=== PATIENT | female | born 1935 | race Two or more races ===

== ENCOUNTER 2024-01-01 11:55 | Inpatient (IN) | payer OTHER ==
[~2024-01-01] VITALS: Ht 149.9 cm; Wt 63.0 kg
[2024-01-01] VITALS (12 sets, daily range): BP systolic 91–147; BP diastolic 30–57; PULSE 26–94; RESP 10–19; TEMP 98.2; O2SAT 97–100
--- NOTE | 2024-01-01 12:17 | ED.PDOC ---
HPI Comments 88 y.o female with PMH of HTN and DM, presents to the ED via EMS for an evaluation of a near syncopal. EMS reports on scene, patient was pale on appearance, 12 lead taken showing a heart block. EMS also reported patient going tachycardiac and then no rhythm for a couple seconds.. Patient has a valve surgery one week ago at [facility] and had a surgical appointment for pacemaker placement tomorrow 01/02/24. Patient denies any chest pain, SOB, nausea, vomiting, leg swelling. Chief Complaint: Syncope Time Seen by MD: 12:01 Reviewed Notes: Nurses Notes, Die Storage Clerk Notes, Medications, Allergies Allergies: Coded Allergies: NO KNOWN ALLERGIES (Unverified , 01/01/24) Information Source: Patient, Emergency Med Personnel Mode of Arrival: EMS Severity: Moderate Timing: Hours Duration: Since onset Onset: At Rest Cardiac Risk Factors: HTN, Diabetes PE Risk Factors: None History of: None Modifying Factors: Nothing Associated Signs and Symptoms: Syncope Past Medical History PAST MEDICAL HISTORY: DM, HTN CROP SUPERVISOR History: No Pertinent CROP SUPERVISOR History Family History Family History: Reviewed,noncontributory to illness Social History Smoker: Non-Smoker Alcohol: Denies ETOH Use Drugs: Denies Drug Use Lives In: Home Constitutional: denies: chills, diaphoresis, fatigue, fever, malaise, sweats, weakness, others EENTM: denies: blurred vision, double vision, ear bleeding, ear discharge, ear drainage, ear pain, ear ringing, eye pain, eye redness, hearing loss, mouth kerry n, mouth swelling, nasal discharge, nose bleeding, nose congestion, nose pain, photophobia, tearing, throat pain, throat swelling, voice changes, others Respiratory: denies: cough, hemoptysis, orthopnea, SOB at rest, shortness of breath, SOB with excertion, stridor, wheezing, others Cardiovascular: reports: syncope; denies: chest pain, dizzy spells, diaphoresis, Dyspnea on exertion, edema, irregular heart beat, left arm pain, lightheadedness, palpitations, PND, others Gastrointestinal: denies: abdomen distended, abdominal pain, blood streaked bowels, constipated, diarrhea, dysphagia, difficulty swallowing, hematemesis, melena, nausea, poor appetite, poor fluid intake, rectal bleeding, rectal pain, vomiting, others Genitourinary: denies: abnormal vagina bleeding, burning, dyspareunia, dysuria, flank pain, frequency, hematuria, incontinence, pain, , vagina discharge, urgency, others Neurological: denies: dizziness, fainting, headache, left sided numbness, left sided weakness, numbness, paresthesia, pre-existing deficit, right sided numbness, right sided weakness, seizure, speech problems, tingling, tremors, weakness, others Musculoskeletal: denies: back pain, gout, joint pain, joint swelling, muscle pain, muscle stiffness, neck pain, others Integumetry: denies: bruises, change in color, change in hair/nails, dryness, laceration, lesions, lumps, rash, wounds, others Allergic/Immunocompromised: denies: Difficulty Healing, Frequent Infections, Hives, Itching, others Hematologic/Lymphatic: denies: anemia, blood clots, easy bleeding, easy bruisin g, swollen glands, others Endocrine: denies: excessive hunger, excessive sweating, excessive thirst, excessive urination, flushing, intolerance to cold, intolerance to heat, unexplained weight gain, unexplained weight loss, others Psychiatric: denies: anxiety, bipolar disorder, depression, hopeless, panic disorder, schizophrenia, sleepless, suicidal, others All Other Systems: Reviewed and Negative Physical Exam General Appearance: Severe Distress HEENT: Normal ENT Inspection, Pharynx Normal, TMs Normal Neck: Full Range of Motion, Non-Tender, Normal, Normal Inspection Respiratory: Chest Non-Tender, Lungs Clear, No Accessory Muscle Use, No Respiratory Distress, Normal Breath Sounds Cardiovascular: Bradycardia Breast Exam: Deferred Gastrointestinal: No Organomegaly, Non Tender, No Pulsatile Mass, Normal Bowel Sounds, Soft Genitalia: Deferred Pelvic: Deferred Rectal: Deferred Extremities: No calf tenderness, Normal capillary refill, Normal inspection, Normal range of motion, Non-tender, No pedal edema Musculoskeletal : Apperance: Normal Neurologic: Alert, cotton ball bagger II-XII nml as Tested, No Motor Deficits, Normal Affect, Normal Mood, No Sensory Deficits Cerebellar Function: NOT DONE Reflexes: NOT DONE Skin: Dry, Normal Color, Warm Peripheral Pulses: 3+ Radial (R), 3+ Radial (L) Lymphatic: No Adenopathy Was a procedure done? Was a procedure done?: No CP Differential Dx Differential Diagnosis: A-fib, A-Flutter, Angina, Anxiety / Panic Attack, Atrial Dysrhythmia, AV Block 3rd Degree, Electrolyte Disorder X-Ray, Labs, Meds, VS Vital Signs Date Time Temp Pulse Resp B/P (MAP) Pulse Ox O2 Delivery O2 Flow Rate FiO2 01/01/24 12:43 133 01/01/24 12:25 116/41 01/01/24 12:05 94 01/01/24 11:59 81 01/01/24 11:55 98.7 20 18 113/64 (80) 98 Lab Test 01/01/24 13:10 Range/Units White Blood Count 7.2 4.4-10.8 10^3/uL Red Blood Count 4.11 4.0-5.20 10^6/uL Hemoglobin 11.7 L 12.2-16.2 g/dL Hematocrit 34.9 L 36.0-46.0 % Mean Corpuscular Volume 85.0 80.0-100.0 fL Mean Corpuscular Hemoglobin 28.3 28.0-32.0 pg Mean Corpuscular Hemoglobin Concent 33.4 32.0-36.0 g/dL Red Cell Distribution Width 15.0 H 11.8-14.3 % Platelet Count 182 140-450 10^3/uL Mean Platelet Volume 9.3 6.9-10.8 fL Neutrophils (%) (Auto) 69.8 37.0-80.0 % Lymphocytes (%) (Auto) 22.2 10.0-50.0 % Monocytes (%) (Auto) 6.0 0.0-12.0 % Eosinophils (%) (Auto) 0.6 0.0-7.0 % Basophils (%) (Auto) 1.4 0.0-2.0 % Neutrophils # (Auto) 5.0 1.6-8.6 10 ^3/uL Lymphocytes # (Auto) 1.6 0.4-5.4 10 ^3/uL Monocytes # (Auto) 0.4 0-1.3 10 ^3/uL Eosinophils # (Auto) 0 0-0.8 10 ^3/uL Basophils # (Auto) 0.1 0-0.2 10 ^3/uL Nucleated Red Blood Cells 0.1 % Prothrombin Time 11.3 9.3-11.8 sec Prothrombin Time INR 1.07 0.9-1.15 Activated Partial Thromboplast Time 26.3 24.5-34.5 SEC Sodium Level 135 L 136-145 mmol/L Potassium Level 3.9 3.5-5.1 mmol/L Chloride Level 102 98-107 mmol/L Carbon Dioxide Level 21 20-31 mmol/L Anion Gap 12 5-15 Blood Urea Nitrogen 22 9-23 mg/dL Creatinine 0.93 0.550-1.02 mg/dL Glomerular Filtration Rate Calc 59 >90 mL/min BUN/Creatinine Ratio 23.7 H 10.0-20.0 Serum Glucose 208 H 74-106 mg/dL Hemoglobin A1c Pending Calcium Level 9.4 8.7-10.4 mg/dL Magnesium Level 2.1 1.6-2.6 mg/dL Troponin I High Sensitivity 105 *H </=34 ng/L B-Type Natriuretic Peptide 406.31 0-100 pg/mL Triglycerides Level 125 < 150 mg/dL Cholesterol Level 133 < 200 mg/dL LDL Cholesterol 64 < 100 mg/dL HDL Cholesterol 42 40-59 mg/dL Thyroid Stimulating Hormone (TSH) 2.67 0.55-4.78 uIU/mL Current Medications Medications (Trade) Dose Ordered Sig/Marcelo Route Start Time Stop Time Status Last Admin Sodium Chloride 1,000 ml @ 150 mls/hr Q6H40M ONCE IV 01/01/24 12:30 01/01/24 19:09 01/01/24 12:25 Dopamine HCl/ Dextrose 250 ml @ 11.925 mls/ hr [id number] IV 01/01/24 12:30 01/01/24 14:21 DC 01/01/24 12:25 Patient alert. Complaining of dizziness. EKG does show complete block. Mentating. Placed a Cordis catheter in internal jugular vein. Pacemaker. Cardiology consultation. BNP elevated. Recently had TAVAR. Blood sugar elevated. She is being paced. Started dopamine. Establish intravenous access. Was given fluids. Reviewed her history. Explained to the patient. Continue cardiac monitoring. Blood sugar elevated pain Cardiac marker elevated. Filer approved inpatient admission [id number]. Time of 1ST Reevaluation: 12:13 Reevaluation 1ST: Unchanged Patient Education/Counseling: Diagnosis, Treatment, Prognosis Family Education/Counseling: No Family Present Departure 1 Departure Time of Disposition: 14:30 Impression: Primary Impression: Complete atrioventricular block Additional Impressions: Hyperglycemia Demand ischemia Disposition: ADMITTED INPATIENT Admit to: Med Surg Condition: Guarded Critical Care Note Critical Care Time?: Yes (90 min-critical care time only) Stability Stability form required: No I personally scribed for TIANNA POP MD ([email or web address]) on 01/01/24 at 12:17. Electronically submitted by Emelia Theodore ([facility]). TIANNA POP MD Jan 01, 2024 12:17
[2024-01-01] MEDS: DOPamine 1600MCG/ML D5W 250 ML IV SCH (12:25)
[2024-01-01] MEDS: SODIUM CHLORIDE 0.9% 1,000 ML IV ONE (12:25)
[2024-01-01] MEDS: ISOPROTERENOL HCL INJECTION 1 MG in D5W 5% 250 ML IV SCH (12:30)
--- NOTE | 2024-01-01 12:56 | DVHINCON2 ---
Date Seen: Jan 01, 2024 Referring Physician MD Carlos Reason for Consultation Complete heart block History of Present Illness This is an 88-year-old female who presented to the emergency room via EMS with a chief complaint of near syncopal event. The patient with complains of dizziness and near syncopal event was found to be lethargic and pale upon EMS arrival. She underwent a 12 lead electrocardiogram revealing a complete heart block with sinus arrest pauses and intermittent tachycardia. She was placed on a high-dose dopamine drip for hemodynamic support. Cardiology consulted STAT for further evaluation. Upon assessment, the patient was found pale, nauseous and vomiting with a dopamine drip infusing. She was initially found with a complete heart block and sinus arrest pauses then transitioned into a junctional tachycardia rhythm in the 180s bpm with an associated systolic blood pressure in the 200s mmHg. Dopamine drip was discontinued with the patient undergoing emergent temporary transvenous pacemaker implantation by Dr. Carmona at bedside (settings 80 bpm and output at 5.0 mA). She reports undergoing a transcatheter aortic valve replacement at [facility] on 12/25/2023 as well as an outpatient permanent pacemaker implantation scheduled for 01/02/2024 at the aforementioned facility. Other medical history includes coronary artery disease status post PTCA including one ELIOT on 10/03/2023, hypertension, and dyslipidemia. Past Medical History Past medical history reviewed. No other significant than mentioned above. Past Surgical History PTCA including one ELIOT on 10/03/2023 at [facility] in [place] TAVR procedure on 12/25/2023 at [facility] in [place] Hysterectomy Right elbow x3 Family History Family history reviewed. Social History Denies the use of illicit drugs, alcohol, or tobacco use. Allergies: Coded Allergies: NO KNOWN ALLERGIES (Unverified , 01/01/24) Home Meds Home medications reviewed. Current Medications Current Medications Medications (Trade) Dose Ordered Sig/Marcelo Route PRN Reason Start Time Stop Time Status Last Admin Dopamine HCl/ Dextrose 250 ml @ 11.925 mls/ hr [id number] IV 01/01/24 12:30 Isoproterenol HCl 1 mg/Dextrose 255 ml @ 30.6 mls/hr Q8H20M IV 01/01/24 12:30 01/01/24 15:29 Review of Systems Constitutional: No symptom reported Ears, Nose, & Throat: No symptom reported Eyes: No symptom reported Neurological: Dizziness, near syncope Pulmonary/Respiratory: No symptom reported Cardiovascular: No symptom reported Gastrointestinal: No symptom reported Genitourinary: No symptom reported Musculoskeletal: No symptom reported Skin: No symptom reported Psychiatric: No symptom reported Endocrine: No symptom reported Hemotologic/Lymphatic: No symptom reported Vital Signs Vital Signs Date Time Temp Pulse Resp B/P (MAP) Pulse Ox O2 Delivery O2 Flow Rate FiO2 01/01/24 12:43 133 01/01/24 11:55 98.7 18 113/64 (80) 98 Physical Exam General Appearance: Lethargic. Pale. Nauseous Head Exam: Normal inspection Neck Exam: Normal inspection. Non-tender. Normal alignment Pulmonary/Respiratory: Chest non-tender. Clear bilateral breath sounds Cardiovascular/Chest: Sinus rhythm with intermittent complete heart block and sinus arrest pauses. No murmurs. No JVD. Peripheral Pulses: 1+ Radial (R). 1+ Radial (L). 1+ Pedal (R). 1+ Pedal (L) Abdominal Exam: Normal bowel sounds. Soft. Vomiting at the setting of high- dose dopamine drip Ankle Exam: Negative ankle edema Lower extremities: Negative lower extremity edema Neuro/Mental Status: A&O x4. Coherent Thoughts/Psych: Normal thought pattern. Appropriate mood and affect. Good judgement and insight Appearance: In no acute distress Skin Exam: Normal inspection. Pale color. Warm. 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 Carmona) The patient with a complete heart block and frequent sinus arrest pauses under went an emergent temporary transvenous pacemaker implantation at bedside with settings including a HR of 80 bpm and Output at 5.0 mA. She is now hemodynamically stable. She is scheduled for a permanent pacemaker implantation with Dr. Carmona on 01/02/2024. States taking DAPT today. We will reestablish DAPT and beta-isaiah post-procedure. Discontinue dopamine drip and isoprot erenol given hemodynamic stability post temporary pacemaker implantation. We recommend to admit to [facility]/ICU overnight. Monitor ECG changes closely and notify. Thank you for allowing us to participate in this patient's care. Please call if you have any questions or concerns. Critical care time: 60 min. This medical document was created using an electronic medical record system with voice recognition software and computerized dictation system. Although this document has been carefully review ed, there might still be some phonetic and typographical errors. Occasional wrong-word or ``sound-alike substitutions may have occurred due to the inherent limitations of voice recognition software. These areas are purely typographical due to imperfections of the software programs and do not reflect any compromise in the patient's medical care. Please read the chart carefully and recognize, using context, where these substitutions have occurred. Plan discussed with: Patient, Other Date of Service: Jan 01, 2024 Billing Provider: KAILEE CARMONA MD Cardiology Common Codes: 80519-HGCDGTJY CARE 30-74 MIN ALICIA MATOS [facility] Jan 01, 2024 12:56
--- NOTE | 2024-01-01 13:07 | DVHNC2 ---
Other Procedure Procedure Temporary venous pacer Indication Complete sinus arrest status post TAVR Dec 26 Success successful placement of 5 Fr Bipolar Pacer wire through cordis central line Backup HR 80 Output 4 mA Informed consent obtained: Yes Risks, benefits, and alternati: Yes Notes After informed consent was obtained risks benefits complications explained to the patient colitis was placed by the ER physician followed which temporary venous pacemaker wire was flow through the Cordis line without difficulty with good capture sensitivity chest x-ray confirmed the position without complication Date of Service: Jan 01, 2024 Billing Provider: KAILEE CARMONA MD Common Visit Codes: 99745-YRPWBFYH CARE 30-74 MIN Secondary Visit Codes: 96534-FAJQXEIA CARE PLAN ADDL 30MIN Procedure Codes: 13034-FWHO-FGSG KAILEE BREAUX MD Jan 01, 2024 13:07
--- NOTE | 2024-01-01 13:25 | DVH ---
CHEST RADIOGRAPH Indication:pacemaker placement Technique: Single frontal view of the chest was obtained Comparison: None FINDINGS: Lines and Tubes: There is a battery pack overlying the right chest wall. Lungs: No focal consolidation. Pleura: No effusion. No pneumothorax. Cardiomediastinal contours: Unremarkable Bones: No acute osseous abnormality. IMPRESSION: No acute cardiopulmonary disease.
[2024-01-01 13:26] LABS: Basophils # (auto) 0.1 10 ^3/uL (0-0.2); Basophils % (auto) 1.4 % (0.0-2.0); Eosinophils # (auto) 0 10 ^3/uL (0-0.8); Eosinophils % (auto) 0.6 % (0.0-7.0); Hematocrit 34.9 % (36.0-46.0); Hemoglobin 11.7 g/dL (12.2-16.2); Lymphocytes # (auto) 1.6 10 ^3/uL (0.4-5.4); Lymphocytes % (auto) 22.2 % (10.0-50.0); Mean Corpuscular Hemoglobin 28.3 pg (28.0-32.0); Mean Corpuscular Hgb Conc. 33.4 g/dL (32.0-36.0); Monocytes # (auto) 0.4 10 ^3/uL (0-1.3); Neutrophils % (auto) 69.8 % (37.0-80.0); Nucleated Red Blood Cells % 0.1 %; Platelet Count (auto) 182 10^3/uL (140-450); Red Blood Cells 4.11 10^6/uL (4.0-5.20); White Blood Cell 7.2 10^3/uL (4.4-10.8)
[2024-01-01] MEDS: DOPamine 1600MCG/ML D5W 250 ML IV ONE (13:32)
[2024-01-01 13:34] LABS: Chloride 102 mmol/L (98-107); Potassium 3.9 mmol/L (3.5-5.1); Sodium 135 mmol/L (136-145)
[2024-01-01 13:35] LABS: Anion Gap 12 (5-15); Calcium 9.4 mg/dL (8.7-10.4); Carbon Dioxide 21 mmol/L (20-31)
[2024-01-01 13:40] LABS: BUN/Creatinine Ratio 23.7 (10.0-20.0); Blood Urea Nitrogen 22 mg/dL (9-23); Glucose 208 mg/dL (74-106)
[2024-01-01 13:43] LABS: Magnesium 2.1 mg/dL (1.6-2.6)
[2024-01-01 14:00] LABS: INR 1.07 (0.9-1.15); Partial Thromboplastin Time 26.3 SEC (24.5-34.5); Prothrombin Time 11.3 sec (9.3-11.8)
--- NOTE | 2024-01-01 14:49 | ECG ---
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
[2024-01-01] MEDS ORDERED: ACETAMINOPHEN 500 MG TAB PO PRN (15:00)
[2024-01-01] MEDS ORDERED: NITROGLYCERIN 0.4 MG SL TAB SL PRN ×3 (15:00→15:15)
[2024-01-01] MEDS ORDERED: MORPHINE SULFATE INJ 2 MG/ml SYRG IV PRN ×2 (15:00→15:15)
[2024-01-01] MEDS ORDERED: ACETAMINOPHEN 325 MG TAB PO PRN (15:15)
[2024-01-01] MEDS ORDERED: ONDANSETRON HCL 4 MG/2 ML VIAL IV PRN (15:15)
[2024-01-01 15:17] LABS: Urine Bacteria FEW /hpf (None Seen); Urine Blood TRACE /uL (Negative); Urine Clarity Turbid (Clear); Urine Color Light-Yellow (Yellow); Urine Protein, UAD Negative (Negative); Urine Specific Gravity 1.019 (1.001-1.035); Urine Urobilinogen Normal (Negative); Urine WBC 24 /hpf (0 - 5)
--- NOTE | 2024-01-01 15:20 | DVHHP2 ---
History of Present Illness Reason for Visit: Weakness History of Present Illness 88 yo female weakness chest pain extensive cardiac history including recent TAVR and recent pacer came with syncopal episode and weakness following pacer instability with signs of complete heart block on intial evaluation evaluated by cardio planned for labor/excavator temp pacer placed in ed planned for icu admission and management with cardio managing and following acute cardiac needs Cardiovascular: CAD, HTN Endocrine: Diabetes Review of Systems Constitutional: Yes: Weakness; No: Fever, Chills, Sweats, Malaise, Other Eyes: No: Pain, Vision change, Conjunctivae inflammation, Eyelid inflammation, Other, Redness ENT: No: Ear pain, Ear discharge, Nose pain, Nose discharge, Nose congestion, Mouth pain, Mouth swelling, Throat pain, Throat swelling, Other Respiratory: Shortness of breath; No: Cough, Dry, SOB with excertion, Wheezing, Hemoptysis, Pleuritic Pain, Sputum, Wheezing, Other Cardiovascular: Chest Pain, Palpitations; No: Orthopnea, Paroxysmal Noc. Dyspnea, Edema, Lt Headedness, Other Gastrointestinal: No: Nausea, Vomiting, Abdominal Pain, Diarrhea, Constipation, Melena, Hematochezia, Other Genitourinary: No Dysuria, No Frequency, No Incontinence, No Hematuria, No Retention, No Other Musculoskeletal: No: other, neck pain, shoulder pain, arm pain, back pain, hand pain, leg pain, foot pain Skin: No: Rash, Lesions, Jaundice, Bruising, Other Neurological: Weakness; No: Numbness, Incoordination, Change in speech, Confusion, Seizures, Other Allergies: Coded Allergies: NO KNOWN ALLERGIES (Unverified , 01/01/24) Medications Current Medications Medications Dose Ordered Sig/Marcelo Route Start Time Stop Time Status Last Admin Dose Admin Acetaminophen 500 mg Q8HP PRN PO 01/01/24 15:00 Nitroglycerin 0.4 mg Q5MINP PRN SL 01/01/24 15:00 Morphine Sulfate 2 mg Q30M PRN IV 01/01/24 15:00 Atorvastatin Calcium 40 mg HS PO 01/01/24 22:00 Exam Vital Signs Vital Signs Date Time Temp Pulse Resp B/P (MAP) Pulse Ox O2 Delivery O2 Flow Rate FiO2 01/01/24 12:43 133 01/01/24 12:25 116/41 01/01/24 11:55 98.7 18 98 General Appearance: Alert, Oriented X3 HEENT: Atraumatic, PERRLA Respiratory: Clear to auscultation, Normal air movement Cardiovascular: Other (irregular rate now paced ) Abdominal: Normal bowel sounds, Soft Extremities: No clubbing, No cyanosis Skin: No rashes, No breakdown Neuro: Normal gait, Normal speech Psych/Mental Status: Mental status NL, Mood NL Labs/Xrays Labs Test 01/01/24 14:35 01/01/24 13:10 Range/Units White Blood Count 7.2 4.4-10.8 10^3/uL Red Blood Count 4.11 4.0-5.20 10^6/uL Hemoglobin 11.7 L 12.2-16.2 g/dL Hematocrit 34.9 L 36.0-46.0 % Mean Corpuscular Volume 85.0 80.0-100.0 fL Mean Corpuscular Hemoglobin 28.3 28.0-32.0 pg Mean Corpuscular Hemoglobin Concent 33.4 32.0-36.0 g/dL Red Cell Distribution Width 15.0 H 11.8-14.3 % Platelet Count 182 140-450 10^3/uL Mean Platelet Volume 9.3 6.9-10.8 fL Neutrophils (%) (Auto) 69.8 37.0-80.0 % Lymphocytes (%) (Auto) 22.2 10.0-50.0 % Monocytes (%) (Auto) 6.0 0.0-12.0 % Eosinophils (%) (Auto) 0.6 0.0-7.0 % Basophils (%) (Auto) 1.4 0.0-2.0 % Neutrophils # (Auto) 5.0 1.6-8.6 10 ^3/uL Lymphocytes # (Auto) 1.6 0.4-5.4 10 ^3/uL Monocytes # (Auto) 0.4 0-1.3 10 ^3/uL Eosinophils # (Auto) 0 0-0.8 10 ^3/uL Basophils # (Auto) 0.1 0-0.2 10 ^3/uL Nucleated Red Blood Cells 0.1 % Prothrombin Time 11.3 9.3-11.8 sec Prothrombin Time INR 1.07 0.9-1.15 Activated Partial Thromboplast Time 26.3 24.5-34.5 SEC Sodium Level 135 L 136-145 mmol/L Potassium Level 3.9 3.5-5.1 mmol/L Chloride Level 102 98-107 mmol/L Carbon Dioxide Level 21 20-31 mmol/L Anion Gap 12 5-15 Blood Urea Nitrogen 22 9-23 mg/dL Creatinine 0.93 0.550-1.02 mg/dL Glomerular Filtration Rate Calc 59 >90 mL/min BUN/Creatinine Ratio 23.7 H 10.0-20.0 Serum Glucose 208 H 74-106 mg/dL Hemoglobin A1c 7.9 H <5.7 % A1C Calcium Level 9.4 8.7-10.4 mg/dL Magnesium Level 2.1 1.6-2.6 mg/dL Troponin I High Sensitivity 105 *H </=34 ng/L B-Type Natriuretic Peptide 406.31 0-100 pg/mL Triglycerides Level 125 < 150 mg/dL Cholesterol Level 133 < 200 mg/dL LDL Cholesterol 64 < 100 mg/dL HDL Cholesterol 42 40-59 mg/dL Thyroid Stimulating Hormone (TSH) 2.67 0.55-4.78 uIU/mL Assessment/Plan Assessment/Plan Admit to ICU Complete heart block complicated cardiac history cardio consulted in ed ICU placement temporary pacer cath evaluation elevated trops chest pain protocol s/p TAVR s/p Pacer with device instability history CHF elevated BNP monitor for fluid overload following with cardio management plan DM hyperglycemia insulin sliding scale Plan discussed with: Patient My Orders Orders - TEZ KENYON MD Procedure Category Date Status Time Admit ADMIT 01/01/24 Transmitted 15:06 Code Status CODE 01/01/24 Transmitted 15:06 Monogram Operator GABRIEL 01/01/24 In Process 15:06 Cardiac DIET 01/01/24 Transmitted Diet-2gna,Lofat,Lochol Dinner Aspirin Tablet PHA 01/02/24 Logged 10:00 Clopidogrel Bisulfate PHA 01/02/24 Logged (Plavix) 10:00 Acetaminophen Tablet PHA 01/01/24 Logged (Tylenol Tablet) 15:15 Zolpidem Tartrate PHA 01/01/24 Logged (Ambien) 15:15 Docusate Sodium PHA 01/02/24 Logged Capsule (Colace 10:00 Basic Metabolic Panel LAB 01/02/24 Verified 04:00 Nitroglycerin PHA 01/01/24 Logged Sublingual (Ntrostat 15:15 Ondansetron Hcl PHA 01/01/24 Logged (Zofran) 15:15 Electrocardigram EKG 01/01/24 Logged 15:06 Alum & Mag PHA 01/01/24 Logged Hydrox-Simethicone 15:15 Troponin-I Hs LAB 01/01/24 Logged 15:06 Lisinopril Tablet PHA 01/02/24 Logged (Zestril Tablet) 10:00 Cardiac GABRIEL 01/01/24 In Process Rehabilitation - Outpa Nitroglycerin PHA 01/01/24 Logged Sublingual (Ntrostat 15:15 Morphine Sulfate PHA 01/01/24 Logged Injection 15:15 Stat Ekg For Chest GABRIEL 01/01/24 In Process Pain 15:06 Notify Md Of Changes [facility] 01/01/24 In Process From Base 15:06 Schedule Clerk For [facility] 01/01/24 In Process 24 Hours 15:06 Emergency Dysrhythmia [facility] 01/01/24 In Process Protocol 15:06 Rhythm Strips Once [facility] 01/01/24 In Process Every Shift 15:06 Oxygen By Nasal RT 01/01/24 Transmitted Cannula 15:06 Electrocardigram EKG 01/01/24 Logged 16:06 Electrocardigram EKG 01/01/24 Logged 18:06 Troponin-I Hs LAB 01/01/24 Logged 16:06 Problem List: (1) Complete atrioventricular block (2) Demand ischemia (3) Hyperglycemia Date of Service: Jan 01, 2024 Billing Provider: TEZ KENYON MD Common Visit Codes: 81192-[id number] CARE 30-74 MIN (40 mins chart evaluation consultation bedside care ) TEZ KENYON MD Jan 01, 2024 15:20
[2024-01-01] MEDS: MAALOX PLUS or MAALOX 30 ML PO ONE (15:25)
[2024-01-01] MEDS: ASPirin 81 mg TAB PO SCH (15:25)
[2024-01-01] MEDS: ACETAMINOPHEN 500 MG TAB PO ONE (15:26)
--- NOTE | 2024-01-01 18:01 | DVHSR ---
APPROVED REPORT EXAM: LIMITED Two-dimensional and M-mode echocardiogram with Doppler and color Doppler. Blood Pressure: 113/64 mmHg INDICATION Complete Heart Block Surgery/Intervention Valve Replacement: Type: TAVR RISK FACTORS Height: 4' 11", Weight: 140 DIMENSIONS LVDd4.4 (3.8-5.7cm)LA (2D)3.7 (1.9-4.0cm)Aortic Root (2.0-3.7cm) LVDs3.8 (2.5-4.0cm)LA (MM) (1.9-4.0cm)Aortic Cusp Exc (1.5-2.0cm) EF (%) 35.0 (55-70%)Rt. Atrium3.2 (1.9-4.0cm)Asc. Aorta cm IVSd0.9 (0.7-1.1cm)RV (D) (1.8-2.4cm) PWd0.9 (0.7-1.1cm) Mitral Valve MitralMitral Stenosis E wave1.20m/sMV Mean GR.mmHg E/A ratio0.02D MVAcm2 Aortic Valve Aortic ValveAortic Stenosis V10.70m/Yessica Mean GR.4mmHg V21.30m/Yessica Peak GR.7mmHg Tricuspid Valve TR Velocity2.46m/s [id number] Other Information Quality : Technically LimitedRhythm : Atrial Fibrillation Technically limited study due to body habitus. Conclusion Moderately to severely reduced left ventricular systolic function estimated ejection fraction of 35%. In a global fashion. Patient is in atrial fibrillation. Mildly reduced right ventricular systolic function. Right ventricular systolic pressure estimated at 24 mm of mercury. Normal biatrial size and dimension. Normal aortic valve structure and function. Normal mitral valve structure and function. Normal tricuspid valve structure and function. The pulmonary valve is grossly normal. No pericardial effusion.
--- NOTE | 2024-01-01 19:05 | ECG ---
[facility] Test Date: 2024-01-01 Test Time: 11:59:13 Pat Name: LEEANN KU Department: ER Room: [address] [place] [address] Gender: F Returns Supervisor: ODETTE : [id number] Requested By: TEZ KENYON Order Number: [id number] Reading MD: Measurements Intervals Dent Rate: 81 P: 0 WI: 150 QRS: -54 QRSD: 136 T: 112 QT: 424 QTc: 493 Interpretive Statements Sinus rhythm Atrial premature complexes in couplets Sinus pause Left bundle branch block Please click the below link to view image of tracing.
[2024-01-01] MEDS: ATORVASTATIN 20 MG TAB PO SCH (22:00)
[2024-01-01] MEDS: ZOLPIDEM TARTRATE 5 MG TAB PO PRN (22:04)
[2024-01-02] VITALS (31 sets, daily range): BP systolic 91–165; BP diastolic 46–87; PULSE 75–119; RESP 9–20; TEMP 97.1–98.2; O2SAT 90–100
[2024-01-02] MEDS ORDERED: METO25TA5 PO (03:03)
[2024-01-02] MEDS ORDERED: CLOP75TA70 PO (03:03)
[2024-01-02] MEDS ORDERED: ACET-1304 PO (03:03)
[2024-01-02] MEDS ORDERED: EMPA1TAB3 PO (03:03)
[2024-01-02] MEDS ORDERED: ATOR40TA52 PO (03:03)
[2024-01-02] MEDS ORDERED: NYST150P2 XX (03:03)
[2024-01-02] MEDS ORDERED: ASPI-543 PO (03:03)
[2024-01-02] MEDS ORDERED: OMEP20TA PO (03:03)
[2024-01-02 05:14] LABS: Basophils # (auto) 0.1 10 ^3/uL (0-0.2); Basophils % (auto) 1.2 % (0.0-2.0); Eosinophils # (auto) 0.5 10 ^3/uL (0-0.8); Eosinophils % (auto) 6.5 % (0.0-7.0); Hematocrit 33.5 % (36.0-46.0); Hemoglobin 11.1 g/dL (12.2-16.2); Lymphocytes # (auto) 2.2 10 ^3/uL (0.4-5.4); Lymphocytes % (auto) 27.4 % (10.0-50.0); Mean Corpuscular Hemoglobin 28.3 pg (28.0-32.0); Mean Corpuscular Hgb Conc. 33.3 g/dL (32.0-36.0); Monocytes # (auto) 0.7 10 ^3/uL (0-1.3); Monocytes % (auto) 8.4 % (0.0-12.0); Neutrophils # (auto) 4.6 10 ^3/uL (1.6-8.6); Neutrophils % (auto) 56.5 % (37.0-80.0); Platelet Count (auto) 163 10^3/uL (140-450); Red Blood Cells 3.94 10^6/uL (4.0-5.20); Red Cell Distribution Width 15.3 % (11.8-14.3); White Blood Cell 8.1 10^3/uL (4.4-10.8)
[2024-01-02] MEDS ORDERED: DEXTROSE (50%) 50ML SYRG IV PRN (05:30)
[2024-01-02 05:31] LABS: Alanine Aminotransferase 10 U/L (7-40); Albumin 3.5 g/dL (3.2-4.8); Alkaline Phosphatase 74 U/L (46-116); Anion Gap 12 (5-15); Aspartate Aminotransferase 14 U/L (13-40); Blood Urea Nitrogen 14 mg/dL (9-23); Calcium 9.1 mg/dL (8.7-10.4); Carbon Dioxide 20 mmol/L (20-31); Chloride 108 mmol/L (98-107); Glucose 110 mg/dL (74-106); Potassium 3.6 mmol/L (3.5-5.1); Sodium 140 mmol/L (136-145); Total Protein 6.8 g/dL (5.7-8.2)
[2024-01-02] MEDS: InsuLIN REG 1unit/0.01ml Soln (100units/ml) SC SCH (06:18)
[2024-01-02] MEDS: ACCU-CHEK COMFORT CURVE STRIP VI SCH (06:18)
[2024-01-02] MEDS: VANCOMYCIN 1GM/200ML PREMIX 200 ML IV ONE ×2 (09:15→10:09)
[2024-01-02] MEDS ORDERED: LISINOPRIL 5 MG TAB PO SCH (10:00)
[2024-01-02] MEDS ORDERED: CLOPIDOGREL BISULFATE 75 MG TAB PO SCH (10:00)
[2024-01-02] MEDS: DOCUSATE SOD 100 MG CAP PO SCH (10:00)
[2024-01-02] MEDS: ATROPINE SULF 1 MG/10ml SYR ONE (10:08)
[2024-01-02] MEDS: VANCOMYCIN HCL 1000 MG VL ONE ×2 (10:08→11:34)
[2024-01-02] MEDS: fentaNYL CITRATE 100 MCG/2 ML VL ONE (10:09)
[2024-01-02] MEDS: EPINEPHrine HCL 1 MG/10 ML SYRG ONE (10:09)
[2024-01-02] MEDS: MIDAZOLAM HCL 2MG/2ML 2ml VIAL (1mg/ml) ONE (10:09)
[2024-01-02] MEDS: LIDOCAINE 2%HCL (LOCAL ANESTH.) INJ 20ML MDV ONE (10:09)
[2024-01-02] MEDS: IODIXANOL 320MG/ML 100ML BTL IV ONE (10:13)
[2024-01-02] MEDS: ACETAMINOPHEN 325 MG TAB PO PRN (12:38)
--- NOTE | 2024-01-02 13:13 | DVH ---
CLINICAL INFORMATION: 88 years old, Female; status post pacemaker placement. TECHNIQUE: Single AP portable chest radiograph was obtained. COMPARISON: XY CHEST XRAY 1 VIEW on DOS: 01/01/24 FINDINGS: Lungs: Clear. Cardiac: Heart size is within normal limits. Transcatheter aortic valve replacement in stable positio n. Interval placement of a left-sided ICD device with leads extending to the right atrium and right v entricle. Pulmonary vasculature: Unremarkable. Mediastinum/sharla: Unremarkable. Bones: No acute osseous abnormality identified. Other: No other significant findings. IMPRESSION: 1. No evidence of acute disease in the chest. 2. Left-sided pacemaker device with leads extending to the right atrium and right ventricle. 3. Additional stable nonacute findings as described above.
--- NOTE | 2024-01-02 14:42 | DVHOP2 ---
Operative Report - 2 Report Details Date: 01/02/24 Preop Diagnosis: Sick sinus syndrome with sinus arrest requiring urgent temporary venous pacemaker implantation. Status post TAVR that was done in December 25, 2023. Postop Diagnosis: Successful implantation of dual-chamber pacemaker were DDDR programming. No obvious complication during the procedure. Surgeon: Shivam Jarrett MD Anesthesiologist: Conscious sedation using25 mcg of fentanyl as well as a mg IV midazolam. Patient was monitored for total of 60 minutes without obvious complication. The medication was given under the direct supervision of the primary scoop filler myself as well as the attending nurses. Anesthesia: Local Consent: The patient was informed of the risks and benefits of the procedure. These include but are not limited to complications of anesthesia, postoperative infection, incomplete relief of symptoms, recurrence of symptoms, damage to blood vessels, nerves and tendons, deep venous thrombosis, pulmonary embolism and possible need for repeat surgery in the future. Indications for Surgery: This is an 88-year-old female who presented to the emergency room via EMS with a chief complaint of near syncopal event. The patient with complains of dizziness and near syncopal event was found to be lethargic and pale upon EMS arrival. Lindsey watkins underwent a 12 lead electrocardiogram revealing a complete heart block with sinus arrest pauses and intermittent tachycardia. She was placed on a high-dose dopamine drip for hemodynamic support. Cardiology consulted STAT for further evaluation. Upon assessment, the patient was found pale, nauseous and vomiting with a dopamine drip infusing. She was initially found with a complete heart block and sinus arrest pauses then transitioned into a junctional tachycardia rhythm in the 180s bpm with an associated systolic blood pressure in the 200s mmHg. Dopamine drip was discontinued with the patient undergoing emergent temporary transvenous pacemaker implantation by Dr. Jarrett at bedside (settings 80 bpm and output at 5.0 mA). She reports undergoing a transcatheter aortic valve replacement at [facility] on 12/25/2023 as well as an outpatient permanent pacemaker implantation scheduled for 01/02/2024 at the aforementioned facility. Other medical history includes coronary artery disease status post PTCA including one ELIOT on 10/03/2023, hypertension, and dyslipidemia Name of Procedure Performed 1. Venogram to visualize the left subclavian vein. 2. Ultrasound-guided left subclavian vein vascular access. 3. Successful implantation with a dual-chamber pacemaker with DDD-R programming. 4. Conscious sedation using25 mcg of fentanyl as well as a mg midazolam in addition to local anesthesia application. Procedure Details Procedure Details: Procedure note and vascular access: After informed consent was obtained, risks, benefits, complications, and alternatives were discussed in details with the patient who agrees to have the procedure done. Vancomycin1 g IV was given as preop prophylaxis, a strict sterile technique was used during the procedure, At the beginning of the procedure venogram was obtained using left antecubital vein vascular access and 10 cc of contrast followed by chasing of 20 cc normal saline, the left deltopectoral area was prepped and draped in regular sterile fashion. Patient received conscious sedation with25 mcg of fentanyl as well as a mg of midazolam under the direct supervision of the primary scoop filler. Total of 20 cc of 1% xylocaine was instilled locally to the deltopectoral groove. Before 1.5 Inch transfer incision was made 1 cm below the medial portion of the mid left clavicle. Pacemaker pocket was created underneath the incision using blunt dissection of the deltopectoral fascia and subcutaneous tissue. Then with the help of fluoroscopic guidance as well as ultrasound guidance we were able to identify the location of the subclavian vein on the left side which was puncture directly with good blood flashback. A J-tip wire was then advanced all the way to the brachiocephalic SVC junction, an eight Pashto sheath was then with a dilator was used and was advanced over the wire to brachiocephalic vein under fluoroscopic guidance. RV lead was advanced and with the help of multiple shaped stylets were able to be parked in the right ventricular lead in the right ventricular apical area, then was attached to the rhythm analyzer electrodes, once it is confirmed to be in good position they were anchored using active fixation a 2nd assessment of threshold output sensitivity and impedance were done and confirmed adequate attachment to the myocardial tissue. After confirming a good threshold and output stylet was retracted and lead was secured to the deltopectoral muscle Using Ethibond 0 0 sutures. Then the peel-away sheath was removed the same wire was used and another sheath of six Pashto size was advanced through the distal part of the left subclavian vein followed which right atrial lead was advanced into the left atrial appendage the help of a curved stylet, after confirming position using checking electrodes. active fixation was made and lead was secured secured to the deltopectoral fascia using the same Ethibond suture., then both leads were connected to the generator, generator then was placed to the pocket, vancomycin solution was used to irrigate the pacemaker pocket, then vancomycin powder was sprayed inside the pocket before multilevel suturing was done involving the deltopectoral fascia the subcutaneous fascia finally the cutaneous layer. Using Glades Vicryl 2-0, 3-0 and finally 4.0 respectively. Then a Steri-Strips was placed over the wound and also Dermabond micro gel., Manufacture Specifics of the leads and generator were as follows: 1. Right atrial lead soleus S45 reference# [id number] serial# [id number] NGRAIN. . 2. Right ventricular lead soleus S53 reference# [id number] serial# [id number] NGRAIN . 3. Generator was a door eight DR-T reference #[id number] serial# [id number] NGRAIN . The set up parameters of the pacemaker was as follows: 1. Atrial lead was sensing 0.4 millisecond. The capture of the right atrial lead threshold was 0.6 volts in the P wave at 2.2 mV with the impedance of 468 ohms, the RA sensitivity was set at 0.5 mV 2. Ventricular lead sensing was at 0.4 milliseconds with a capture threshold of 0.5 volts and R-wave at 4.9 mV with the impedance of 507 ohms, RV sensitivity was set at 2 mV. 3. Program sitting was DDD-R minimal heart rate 75, maximum heart rate 130 beats per minute. With the av delay 150 millisecond on PVARP of 250 milliseconds. Impression and plan: 1. Successful implantation of dual-chamber pacemaker for sick sinus syndrome. 2. Patient would need chest x-ray to rule out normal thorax, would need a 2nd x- ray tomorrow morning for delayed Pneumothorax. 3. Patient would need interrogation of device tomorrow morning before she leaves the hospital. 4. Patient would follow post pacemaker implantation obstruction, involving seven day of prophylactic antibiotic. 5. Patient we will be seen in the pacemaker clinic in one week to 10 day time from her discharge. 6. Patient will need to resume all her antiplatelet therapy given recent history of stent implantation in October 07, 2023. Condition Good Disposition SHIVAM JARRETT MD Jan 02, 2024 14:42
--- NOTE | 2024-01-02 16:37 | DVHPN2 ---
Consult Progress Note Date Seen: Jan 02, 2024 Subjective Patient reports: No new complaints Review of Systems: HEENT:Normal, CVS:Normal, RESPIRATORY:Normal, GI:Normal, :Normal, MSK:Normal, NEURO:Normal Objective vital signs Vital Sign Date Time Temp Pulse Resp B/P (MAP) Pulse Ox O2 Delivery O2 Flow Rate FiO2 01/02/24 15:59 115 124/65 (84) 01/02/24 14:59 12 01/02/24 13:59 92 01/02/24 13:29 97.5 97.5 01/02/24 08:00 Nasal Cannula* 2 28 Total Intake and Output 01/01/24 01/01/24 01/02/24 15:00 23:00 07:00 Intake Total 150 ml 1140 ml 240 ml Balance 150 ml 1140 ml 240 ml medications Current Medications Medications Dose Ordered Sig/Marcelo Route Start Time Stop Time Status Last Admin Dose Admin Atorvastatin Calcium 40 mg HS PO 01/01/24 22:00 Zolpidem Tartrate 5 mg QHSP PRN PO 01/01/24 15:15 01/01/24 22:04 5 MG Docusate Sodium 100 mg DAILY PO 01/02/24 10:00 Nitroglycerin 0.4 mg Q5MINP PRN SL 01/01/24 15:15 Ondansetron HCl 4 mg Q4HP PRN IV 01/01/24 15:15 Morphine Sulfate 2 mg Q30M PRN IV 01/01/24 15:15 Diagnostic Test (Pha) 1 strip ACHS 01/02/24 07:00 01/02/24 06:18 1 STRIP Insulin Human Regular ACHS SC 01/02/24 07:00 Dextrose 50 ml UD PRN IV 01/02/24 05:30 Vancomycin HCl 200 ml @ 200 mls/hr Q12HR IV 01/02/24 22:00 01/03/24 10:59 Acetaminophen 650 mg Q6HP PRN PO 01/02/24 12:15 01/02/24 12:38 650 MG Examination: GENERAL:Normal, HEENT:Normal, NECK:Normal, LUNGS:Normal, CVS:Normal, ABDOMEN:Normal, MSK:Normal, SKIN:Normal, NEURO:Normal, :Normal laboratory and microbiology Laboratory Tests 01/02/24 04:36 Test 01/02/24 04:36 Range/Units Serum Glucose 110 H 74-106 mg/dL Problem List/Assessment/Plan Problem List/Assessment/Plan Near-syncope with intermittent complete heart block and sinus arrest pauses status post permanent pacemaker implantation Recent transcatheter aortic valve replacement, 12/25/2023 Coronary artery disease status post PTCA including 1 ELIOT, 10/03/2023 Hypertension Dyslipidemia Plan/Recommendation The patient with a complete heart block and frequent sinus arrest pauses underwent an emergent temporary transvenous pacemaker implantation at bedside with settings including a HR of 80 bpm and Output at 5.0 mA. On DAPT and beta-isaiah post-procedure. Monitor ECG changes closely and notify. CHEST X-RAY for tomorrow morning Pacemaker assessment Thank you for allowing us to participate in this patient's care. Please call if you have any questions or concerns. Case discussed with Dr. Mckee Chief care, time spent: 52 minutes. Plan discussed with: Patient Date of Service: Jan 02, 2024 Billing Provider: KAILEE CARMONA MD Cardiology Common Codes: [id number] [facility] ROSENDA BOLDEN RESIDENT Jan 02, 2024 16:37
--- NOTE | 2024-01-02 16:40 | DVHPN2 ---
Subjective Patient denies any symptoms this time Reviewed: Care Plan, H&P, Labs, Medications Changes from previous H/P or p: Changes General: Per HPI Eyes: No Pain, No Vision change, No Conjunctivae inflammation, No Eyelid inflammation, No Other, No Redness ENT: No Ear pain, No Ear discharge, No Nose pain, No Nose discharge, No Nose congestion, No Mouth pain, No Mouth swelling, No Throat pain, No Throat swelling, No Other Cardiovascular: Chest Pain, Palpitations; No Orthopnea, No Paroxysmal Noc. Dyspnea, No Edema, No Lt Headedness, No Other Respiratory: No Cough, No Dry; Shortness of breath; No SOB with excertion, No Wheezing, No Hemoptysis, No Pleuritic Pain, No Sputum, No Other Gastrointestinal: No Nausea, No Vomiting, No Abdominal Pain, No Diarrhea, No Constipation, No Melena, No Hematochezia, No Other Genitourinary: No Dysuria, No Frequency, No Incontinence, No Hematuria, No Retention, No Other Musculoskeletal: No other, No neck pain, No shoulder pain, No arm pain, No back pain, No hand pain, No leg pain, No foot pain Skin: No Rash, No Lesions, No Jaundice, No Bruising, No Other Objective Vitals Vital Signs Date Time Temp Pulse Resp B/P (MAP) Pulse Ox O2 Delivery O2 Flow Rate FiO2 01/02/24 15:59 115 124/65 (84) 01/02/24 14:59 12 01/02/24 13:59 92 01/02/24 13:29 97.5 97.5 01/02/24 08:00 Nasal Cannula* 2 28 Intake/Output Intake and Output 01/02/24 07:00 Intake Total 1530 ml Balance 1530 ml Intake Oral 480 ml IV Total 1050 ml # Voids 3 Exam Patient was assessed in the cardiac director geophysical laboratory recovery area. General Appearance: Alert, Oriented X3, Cooperative, No acute distress Lungs: Clear to auscultation, Normal air movement Chest/Breasts: Other (Dressing dry and intact to chest. Arm in sling.) Cardiovascular: Normal S1, Normal S2 Abdomen: Normal bowel sounds, Soft, No tenderness, No hepatospenomegaly Genitourinary: No Apparent Abnormalities Musculoskeletal: Normal sensory function, Normal motor function Extremities: No clubbing, No cyanosis Neuro: Normal gait, Normal speech Psych/Mental Status: Mental status NL, Mood NL Medications Current Medications Medications Dose Ordered Sig/Marcelo Route Start Time Stop Time Status Last Admin Dose Admin Atorvastatin Calcium 40 mg HS PO 01/01/24 22:00 Zolpidem Tartrate 5 mg QHSP PRN PO 01/01/24 15:15 01/01/24 22:04 5 MG Docusate Sodium 100 mg DAILY PO 01/02/24 10:00 Nitroglycerin 0.4 mg Q5MINP PRN SL 01/01/24 15:15 Ondansetron HCl 4 mg Q4HP PRN IV 01/01/24 15:15 Morphine Sulfate 2 mg Q30M PRN IV 01/01/24 15:15 Diagnostic Test (Pha) 1 strip ACHS 01/02/24 07:00 01/02/24 06:18 1 STRIP Insulin Human Regular ACHS SC 01/02/24 07:00 Dextrose 50 ml UD PRN IV 01/02/24 05:30 Vancomycin HCl 200 ml @ 200 mls/hr Q12HR IV 01/02/24 22:00 01/03/24 10:59 Acetaminophen 650 mg Q6HP PRN PO 01/02/24 12:15 01/02/24 12:38 650 MG Aspirin 81 mg DAILY PO 01/03/24 10:00 UNV Clopidogrel Bisulfate 75 mg DAILY PO 01/03/24 10:00 UNV Metoprolol Succinate 25 mg DAILY PO 01/03/24 10:00 UNV Laboratory Results Laboratory Tests 01/02/24 04:36 Chemistry Test 01/02/24 04:36 Albumin 3.5 g/dL (3.2-4.8) Calcium Level 9.1 mg/dL (8.7-10.4) Total Protein 6.8 g/dL (5.7-8.2) LFT Test 01/02/24 04:36 Alanine Aminotransferase (ALT) 10 U/L (7-40) Alkaline Phosphatase 74 U/L (46-116) Aspartate Amino Transferase (AST) 14 U/L (13-40) Total Bilirubin 1.0 mg/dL (0.2-1.0) Urinalysis Test 01/01/24 14:35 Urine Color Light-yellow (Yellow) Urine Clarity Turbid (Clear) H Urine pH 5.0 (5.0-9.0) Urine Specific [place] 1.019 (1.001-1.035) Urine Protein Negative (Negative) Urine Ketones 1+ (Negative) H Urine Blood Trace /uL (Negative) H Urine Nitrite Negative (Negative) Urine Bilirubin Negative (Negative) Urine Urobilinogen Normal mg/dL (Negative) Urine Leukocyte Esterase 2+ /uL (Negative) Urine RBC 5 /hpf (0 - 4) Urine WBC 24 /hpf (0 - 5) Urine Squamous Epithelial Cells Few /hpf (<5) Urine Bacteria Few /hpf (None Seen) H Urine Glucose 4+ mg/dL (Normal) H Labs and/or images reviewed: Labs reviewed by me, Image(s) reviewed by me Assessment/Plan Assessment/Plan Impression: -sick sinus syndrome, status post permanent pacemaker implant -history of recent TAVR -coronary artery disease -primary hypertension -diabetes mellitus -NSTEMI type 2 Plan: -given patient had PPI this afternoon, patient unstable to transfer to [facility] -continue antiplatelet therapy per Cardiology -regular insulin sliding scale -continue antihypertensives -repeat labs in a.m. -continue current postoperative antibiotics -reassess for discharge in a.m. Total time spent with patient discussing and formulating plan of care: 35 minutes. This medical document was created using an electronic medical record system with [address] dictation system. Although this document has been carefully reviewed, there may still be some phonetic and typographical errors. These areas are purely typographical due to imperfections of the software programs, and do not reflect any compromise in the patient's medical care. Plan discussed with: Patient, Other (RN) My Orders Orders - MARIBEL BRANNON NP Procedure Category Date Status Time Complete Blood Count LAB 01/03/24 Verified 04:00 Basic Metabolic Panel LAB 01/03/24 Verified 04:00 Date of Service: Jan 02, 2024 Billing Provider: MARIBEL BRANNON NP Common Visit Codes: [id number] INP/OBS CARE(HIGH) MARIBEL BRANNON NP Jan 02, 2024 16:40
[2024-01-02] MEDS: ASPirin 81 mg TAB PO ONE (16:45)
[2024-01-02] MEDS: CLOPIDOGREL BISULFATE 75 MG TAB PO ONE (16:45)
[2024-01-02] MEDS: METOPROLOL SUCCINATE XL 50 MG TAB PO ONE (18:15)
[2024-01-02] MEDS: VANCOMYCIN 1GM/200ML PREMIX 200 ML IV SCH (21:48)
[2024-01-03] VITALS (13 sets, daily range): BP systolic 104–152; BP diastolic 60–79; PULSE 70–118; RESP 16–20; TEMP 97.4–98.2; O2SAT 55–97
[2024-01-03 06:12] LABS: Basophils # (auto) 0 10 ^3/uL (0-0.2); Basophils % (auto) 0.4 % (0.0-2.0); Eosinophils # (auto) 0.3 10 ^3/uL (0-0.8); Eosinophils % (auto) 3.6 % (0.0-7.0); Hematocrit 33.1 % (36.0-46.0); Hemoglobin 11.2 g/dL (12.2-16.2); Lymphocytes # (auto) 1.1 10 ^3/uL (0.4-5.4); Lymphocytes % (auto) 12.4 % (10.0-50.0); Mean Corpuscular Hemoglobin 28.9 pg (28.0-32.0); Mean Corpuscular Hgb Conc. 33.8 g/dL (32.0-36.0); Mean Corpuscular Volume 85.4 fL (80.0-100.0); Monocytes # (auto) 0.7 10 ^3/uL (0-1.3); Monocytes % (auto) 8.6 % (0.0-12.0); Neutrophils # (auto) 6.5 10 ^3/uL (1.6-8.6); Platelet Count (auto) 163 10^3/uL (140-450); Red Blood Cells 3.88 10^6/uL (4.0-5.20); Red Cell Distribution Width 15.4 % (11.8-14.3); White Blood Cell 8.7 10^3/uL (4.4-10.8)
[2024-01-03 06:18] LABS: Anion Gap 10 (5-15); Calcium 9.1 mg/dL (8.7-10.4); Carbon Dioxide 22 mmol/L (20-31); Chloride 109 mmol/L (98-107); Potassium 3.9 mmol/L (3.5-5.1); Sodium 141 mmol/L (136-145)
[2024-01-03 06:24] LABS: BUN/Creatinine Ratio 22.2 (10.0-20.0); Blood Urea Nitrogen 14 mg/dL (9-23); Glucose 101 mg/dL (74-106)
[2024-01-03] MEDS: METOPROLOL SUCCINATE XL 50 MG TAB PO SCH (08:54)
[2024-01-03] MEDS: ASPirin 81 mg TAB PO SCH (09:02)
[2024-01-03] MEDS: CLOPIDOGREL BISULFATE 75 MG TAB PO SCH (09:03)
--- NOTE | 2024-01-03 09:43 | DVH ---
CHEST RADIOGRAPH Indication:s/p permanent pacemaker implantation Technique: Single frontal view of the chest was obtained COMPARISON: XY CHEST PORTABLE on DOS: 01/02/24, XY CHEST XRAY 1 VIEW on DOS: 01/01/24 FINDINGS: Lines and Tubes: Left chest wall pacemaker. Lungs: Clear Pleura: No effusion. No pneumothorax. Cardiomediastinal contours: Cardiac valve replacement. Bones: Unremarkable IMPRESSION: No acute disease.
--- NOTE | 2024-01-03 11:47 | DVHPN2 ---
Consult Progress Note Subjective Patient reports: Feels better Review of Systems: CVS:Normal (Denies chest pain, palpitation, shortness of breath.) Objective vital signs Vital Sign Date Time Temp Pulse Resp B/P (MAP) Pulse Ox O2 Delivery O2 Flow Rate FiO2 01/03/24 09:00 98.0 107 19 152/77 (102) 97 98.0 01/02/24 20:00 Room Air* 0 21 Total Intake and Output 01/02/24 01/02/24 01/03/24 15:00 23:00 07:00 Intake Total 305 ml 210 ml Balance 305 ml 210 ml medications Current Medications Medications Dose Ordered Sig/Marcelo Route Start Time Stop Time Status Last Admin Dose Admin Atorvastatin Calcium 40 mg HS PO 01/01/24 22:00 01/02/24 21:29 40 MG Zolpidem Tartrate 5 mg QHSP PRN PO 01/01/24 15:15 01/01/24 22:04 5 MG Docusate Sodium 100 mg DAILY PO 01/02/24 10:00 01/03/24 08:52 100 MG Nitroglycerin 0.4 mg Q5MINP PRN SL 01/01/24 15:15 Ondansetron HCl 4 mg Q4HP PRN IV 01/01/24 15:15 Morphine Sulfate 2 mg Q30M PRN IV 01/01/24 15:15 Diagnostic Test (Pha) 1 strip ACHS 01/02/24 07:00 01/03/24 06:04 1 STRIP Insulin Human Regular ACHS SC 01/02/24 07:00 01/02/24 22:01 3 UNITS Dextrose 50 ml UD PRN IV 01/02/24 05:30 Vancomycin HCl 200 ml @ 200 mls/hr Q12HR IV 01/02/24 22:00 01/03/24 10:59 01/03/24 08:55 200 MLS/HR Acetaminophen 650 mg Q6HP PRN PO 01/02/24 12:15 01/02/24 12:38 650 MG Aspirin 81 mg DAILY PO 01/03/24 10:00 Clopidogrel Bisulfate 75 mg DAILY PO 01/03/24 10:00 Metoprolol Succinate 25 mg DAILY PO 01/03/24 10:00 01/03/24 08:54 25 MG Examination: CVS:Abnormal (Irregular heart rate, tachycardia. Telemetry consistent with atrial fibrillation RVR at 1 beats per minute.) laboratory and microbiology Laboratory Tests 01/03/24 04:27 Test 01/03/24 04:27 Range/Units Serum Glucose 101 74-106 mg/dL Problem List/Assessment/Plan Problem List/Assessment/Plan Problem List/Assessment/Plan Near-syncope with intermittent complete heart block and sinus arrest pauses status post permanent pacemaker implantation Recent transcatheter aortic valve replacement, 12/25/2023 Coronary artery disease status post PTCA including 1 ELIOT, 10/03/2023 Hypertension Dyslipidemia Tachycardia, PAT Plan/Recommendation The patient with a complete heart block and frequent sinus arrest pauses underwent an emergent temporary transvenous pacemaker implantation at bedside with settings including a HR of 80 bpm and Output at 5.0 mA. On DAPT and beta-isaiah post-procedure. Monitor ECG changes closely and notify. CHEST X-RAY for tomorrow morning Pacemaker assessment Metoprolol 25 mg p.o. twice daily. Case Discussed with Dr Miguel. S/p ppm placement. Patient having intermittent episodes of tachycardia, possible PAT. EKG on possible atrial fibrillation with RVR though under further review noted to be sinus tachycardia with first-degree, long ME interval. Interrogation this morning showing normal functioning device. CXR showing appropriate placed leads, no acute cardiopulmonary disease. 5 mg metoprolol IV push x1 given. Continue on metoprolol 25 mg p.o. twice daily. Restarted on aspirin and Plavix. Patient to follow up postop 1 week with Bender as well as continued device monitoring/interrogation. If heart rate remains stable, patient is stable for discharge from cardiology standpoint with above recs. Critical care, time spent: 45 minutes This medical document was created using an electronic medical record system with voice recognition software and computerized dictation system. Although this document has been carefully reviewed, there might still be some phonetic and typographical errors. Occasional wrong-word or ``sound-alike substitutions may have occurred due to the inherent limitations of voice recognition software. These areas are purely typographical due to imperfections of the software programs and do not reflect any compromise in the patient's medical care. Please read the chart carefully and recognize, using context, where these substitutions have occurred. Thank you for allowing us to participate in this patient's care. Please call if you have any questions or concerns. Plan discussed with: Patient, Spouse, Son Date of Service: Jan 03, 2024 Billing Provider: KAILEE MIGUEL MD Common Visit Codes: [id number] INP/OBS CARE(HIGH), [id number] CARE 30-[address] [facility] Jan 03, 2024 11:47
[2024-01-03] MEDS: METOPROLOL TARTRATE 1MG/1ML-5ML VIAL IV ONE (12:00)
--- NOTE | 2024-01-03 14:03 | DVH ---
CHEST RADIOGRAPH Indication:NEW AFIB Technique: Single frontal view of the chest was obtained Comparison: XY CHEST PORTABLE on DOS: 01/03/24, XY CHEST PORTABLE on DOS: 01/02/24, XY CHEST XRAY 1 V IEW on DOS: 01/01/24 FINDINGS: Lines and Tubes: None Lungs: No focal consolidation. Pleura: No effusion. No pneumothorax. Cardiomediastinal contours: Unremarkable Bones: No acute osseous abnormality. IMPRESSION: 1. No acute cardiopulmonary disease. 2. No significant change from 01/02/2024.
--- NOTE | 2024-01-03 15:46 | DVHPN2 ---
Subjective Patient denies any symptoms this time Reviewed: Care Plan, H&P, Labs, Medications Changes from previous H/P or p: No Changes General: Per HPI Eyes: No Pain, No Vision change, No Conjunctivae inflammation, No Eyelid inflammation, No Other, No Redness ENT: No Ear pain, No Ear discharge, No Nose pain, No Nose discharge, No Nose congestion, No Mouth pain, No Mouth swelling, No Throat pain, No Throat swelling, No Other Cardiovascular: Chest Pain, Palpitations; No Orthopnea, No Paroxysmal Noc. Dyspnea, No Edema, No Lt Headedness, No Other Respiratory: No Cough, No Dry; Shortness of breath; No SOB with excertion, No Wheezing, No Hemoptysis, No Pleuritic Pain, No Sputum, No Other Gastrointestinal: No Nausea, No Vomiting, No Abdominal Pain, No Diarrhea, No Constipation, No Melena, No Hematochezia, No Other Genitourinary: No Dysuria, No Frequency, No Incontinence, No Hematuria, No Retention, No Other Musculoskeletal: No other, No neck pain, No shoulder pain, No arm pain, No back pain, No hand pain, No leg pain, No foot pain Skin: No Rash, No Lesions, No Jaundice, No Bruising, No Other Objective Vitals Vital Signs Date Time Temp Pulse Resp B/P (MAP) Pulse Ox O2 Delivery O2 Flow Rate FiO2 01/03/24 13:00 97.8 110 19 151/71 (97) 97 97.8 01/03/24 08:00 Room Air* 0 21 Intake/Output Intake and Output 01/03/24 07:00 Intake Total 515 ml Balance 515 ml Intake Oral 315 ml IV Total 200 ml # Voids 3 Exam 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 General Appearance: Alert, Oriented X3, Cooperative, No acute distress HEENT: Atraumatic, PERRLA Lungs: Clear to auscultation, Normal air movement Chest/Breasts: Other (Dressing dry and intact to chest. Arm in sling.) Cardiovascular: Normal S1, Normal S2 Abdomen: Normal bowel sounds, Soft, No tenderness, No hepatospenomegaly Genitourinary: No Apparent Abnormalities Musculoskeletal: Normal sensory function, Normal motor function Extremities: No clubbing, No cyanosis Neuro: Normal gait, Normal speech Skin: Dry, Intact Psych/Mental Status: Mental status NL, Mood NL Medications Current Medications Medications Dose Ordered Sig/Marcelo Route Start Time Stop Time Status Last Admin Dose Admin Atorvastatin Calcium 40 mg HS PO 01/01/24 22:00 01/02/24 21:29 40 MG Zolpidem Tartrate 5 mg QHSP PRN PO 01/01/24 15:15 01/01/24 22:04 5 MG Docusate Sodium 100 mg DAILY PO 01/02/24 10:00 01/03/24 08:52 100 MG Nitroglycerin 0.4 mg Q5MINP PRN SL 01/01/24 15:15 Ondansetron HCl 4 mg Q4HP PRN IV 01/01/24 15:15 Morphine Sulfate 2 mg Q30M PRN IV 01/01/24 15:15 Diagnostic Test (Pha) 1 strip ACHS 01/02/24 07:00 01/03/24 11:42 1 STRIP Insulin Human Regular ACHS SC 01/02/24 07:00 01/03/24 11:43 3 UNITS Dextrose 50 ml UD PRN IV 01/02/24 05:30 Acetaminophen 650 mg Q6HP PRN PO 01/02/24 12:15 01/02/24 12:38 650 MG Aspirin 81 mg DAILY PO 01/03/24 10:00 Clopidogrel Bisulfate 75 mg DAILY PO 01/03/24 10:00 Metoprolol Succinate 25 mg DAILY PO 01/03/24 10:00 01/03/24 08:54 25 MG Laboratory Results Laboratory Tests 01/03/24 04:27 Chemistry Test 01/03/24 04:27 Calcium Level 9.1 mg/dL (8.7-10.4) Urinalysis Test 01/01/24 14:35 Urine Color Light-yellow (Yellow) Urine Clarity Turbid (Clear) H Urine pH 5.0 (5.0-9.0) Urine Specific [place] 1.019 (1.001-1.035) Urine Protein Negative (Negative) Urine Ketones 1+ (Negative) H Urine Blood Trace /uL (Negative) H Urine Nitrite Negative (Negative) Urine Bilirubin Negative (Negative) Urine Urobilinogen Normal mg/dL (Negative) Urine Leukocyte Esterase 2+ /uL (Negative) Urine RBC 5 /hpf (0 - 4) Urine WBC 24 /hpf (0 - 5) Urine Squamous Epithelial Cells Few /hpf (<5) Urine Bacteria Few /hpf (None Seen) H Urine Glucose 4+ mg/dL (Normal) H Labs and/or images reviewed: Labs reviewed by me, Image(s) reviewed by me Assessment/Plan Assessment/Plan Impression: -sick sinus syndrome, status post permanent pacemaker implant -history of recent TAVR -coronary artery disease -primary hypertension -diabetes mellitus -NSTEMI type 2 Plan: Events: Patient had atrial fibrillation with rapid ventricular rate. Patient requiring IV beta blockers for rate control. Patient has uncontrolled heart rate status post pacemaker implant, patient is unstable for transfer to [facility]. We will reassess discharge tomorrow. -given patient had PPI this afternoon, patient unstable to transfer to [facility] -continue antiplatelet therapy per Cardiology -regular insulin sliding scale -continue antihypertensives -continue current postoperative antibiotics -reassess for discharge in a.m. Total time spent with patient discussing and formulating plan of care: 35 minutes. This medical document was created using an electronic medical record system with Match dictation system. Although this document has been carefully reviewed, there may still be some phonetic and typographical errors. These areas are purely typographical due to imperfections of the software programs, and do not reflect any compromise in the patient's medical care. Plan discussed with: Patient, Other (RN) Date of Service: Jan 03, 2024 Billing Provider: MARIBEL BRANNON NP Common Visit Codes: [id number] INP/OBS CARE(HIGH) MARIBEL BRANNON NP Jan 03, 2024 15:45
[2024-01-04 05:00] VITALS: BP 120/64; PULSE 116; RESP 18; TEMP 98.1; O2SAT 99
[2024-01-04 08:00] VITALS: PULSE 112; PULSE 114; RESP 20; O2SAT 95
[2024-01-04 08:50] VITALS: BP 128/69; PULSE 117; RESP 20; TEMP 98.8; O2SAT 95
[2024-01-04 09:15] LABS: Anion Gap 9 (5-15); Carbon Dioxide 24 mmol/L (20-31); Chloride 107 mmol/L (98-107); Potassium 3.6 mmol/L (3.5-5.1); Sodium 140 mmol/L (136-145)
[2024-01-04 09:21] LABS: BUN/Creatinine Ratio 23.7 (10.0-20.0); Blood Urea Nitrogen 14 mg/dL (9-23); Glucose 96 mg/dL (74-106); Magnesium 1.9 mg/dL (1.6-2.6)
[2024-01-04] MEDS ORDERED: METOPROLOL TARTRATE 25 MG TAB PO SCH (10:00)
[2024-01-04] MEDS: METOPROLOL TARTRATE 50 MG TAB PO SCH (10:22)
[2024-01-04] MEDS ORDERED: DOXY100C79 PO (10:25)
[2024-01-04] MEDS ORDERED: MET50T PO (10:25)
--- NOTE | 2024-01-04 10:34 | DVHDS2 ---
Discharge Summary Date of Admission Jan 01, 2024 at 15:09 Date of Discharge: Jan 04, 2024 Admitting Diagnosis Complete heart block Labs/Diagnostic Data: Laboratory Results Test 01/04/24 08:21 01/04/24 05:32 01/03/24 04:27 01/02/24 04:36 Sodium Level 140 mmol/L (136-145) Potassium Level 3.6 mmol/L (3.5-5.1) Chloride Level 107 mmol/L (98-107) Carbon Dioxide Level 24 mmol/L (20-31) Anion Gap 9 (5-15) Blood Urea Nitrogen 14 mg/dL (9-23) Creatinine 0.59 mg/dL (0.550-1.02) Glomerular Filtration Rate Calc 87 mL/min (>90) BUN/Creatinine Ratio 23.7 (10.0-20.0) Serum Glucose 96 mg/dL (74-106) Calcium Level 9.0 mg/dL (8.7-10.4) Magnesium Level 1.9 mg/dL (1.6-2.6) POC Glucose 134 mg/dl (70-106) White Blood Count 8.7 10^3/uL (4.4-10.8) Red Blood Count 3.88 10^6/uL (4.0-5.20) Hemoglobin 11.2 g/dL (12.2-16.2) Hematocrit 33.1 % (36.0-46.0) Mean Corpuscular Volume 85.4 fL (80.0-100.0) Mean Corpuscular Hemoglobin 28.9 pg (28.0-32.0) Mean Corpuscular Hemoglobin Concent 33.8 g/dL (32.0-36.0) Red Cell Distribution Width 15.4 % (11.8-14.3) Platelet Count 163 10^3/uL (140-450) Mean Platelet Volume 9.5 fL (6.9-10.8) Neutrophils (%) (Auto) 75.0 % (37.0-80.0) Lymphocytes (%) (Auto) 12.4 % (10.0-50.0) Monocytes (%) (Auto) 8.6 % (0.0-12.0) Eosinophils (%) (Auto) 3.6 % (0.0-7.0) Basophils (%) (Auto) 0.4 % (0.0-2.0) Neutrophils # (Auto) 6.5 10 ^3/uL (1.6-8.6) Lymphocytes # (Auto) 1.1 10 ^3/uL (0.4-5.4) Monocytes # (Auto) 0.7 10 ^3/uL (0-1.3) Eosinophils # (Auto) 0.3 10 ^3/uL (0-0.8) Basophils # (Auto) 0 10 ^3/uL (0-0.2) Nucleated Red Blood Cells 0.0 % Total Bilirubin 1.0 mg/dL (0.2-1.0) Aspartate Amino Transferase (AST) 14 U/L (13-40) Alanine Aminotransferase (ALT) 10 U/L (7-40) Alkaline Phosphatase 74 U/L (46-116) Total Protein 6.8 g/dL (5.7-8.2) Albumin 3.5 g/dL (3.2-4.8) Test 01/01/24 17:57 01/01/24 14:35 01/01/24 13:10 Troponin I High Sensitivity 187 ng/L (</=34) Urine Color Light-yellow (Yellow) Urine Clarity Turbid (Clear) Urine pH 5.0 (5.0-9.0) Urine Specific [place] 1.019 (1.001-1.035) Urine Protein Negative (Negative) Urine Ketones 1+ (Negative) Urine Blood Trace /uL (Negative) Urine Nitrite Negative (Negative) Urine Bilirubin Negative (Negative) Urine Urobilinogen Normal mg/dL (Negative) Urine Leukocyte Esterase 2+ /uL (Negative) Urine RBC 5 /hpf (0 - 4) Urine WBC 24 /hpf (0 - 5) Urine Squamous Epithelial Cells Few /hpf (<5) Urine Bacteria Few /hpf (None Seen) Urine Glucose 4+ mg/dL (Normal) Prothrombin Time 11.3 sec (9.3-11.8) Prothrombin Time INR 1.07 (0.9-1.15) Activated Partial Thromboplast Time 26.3 SEC (24.5-34.5) Hemoglobin A1c 7.9 % A1C (<5.7) B-Type Natriuretic Peptide 406.31 pg/mL (0-100) Triglycerides Level 125 mg/dL (< 150) Cholesterol Level 133 mg/dL (< 200) LDL Cholesterol 64 mg/dL (< 100) HDL Cholesterol 42 mg/dL (40-59) Thyroid Stimulating Hormone (TSH) 2.67 uIU/mL (0.55-4.78) Other Laboratory Tests 01/04/24 08:21 01/03/24 04:27 Brief Hx & Hospital Course: History of Present Illness 88 yo female weakness chest pain extensive cardiac history including recent TAVR and recent pacer came with syncopal episode and weakness following pacer instability with signs of complete heart block on intial evaluation evaluated by cardio 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 Course of hospitalization: Patient had transvenous pacemaker placed while in the emergency room. Patient was taken to the cardiac catheterization lab for permanent pacemaker implant. Patient had successful implant without any complications. Patient was noted to go into atrial fibrillation post implant with rapid ventricular rate. Heart rate was controlled with IV Lopressor. Metoprolol tartrate was also increased to 50 mg p.o. twice a day. The patient denies having any more palpitations. Her heart rate has been stable overnight. She was agreeable to be discharged home and follow up with her guest services that recently placed her TAVR. She will be continued on current dual antiplatelet therapy with Plavix and aspirin. With respect to the patient having atrial fibrillation, given her CHADS-VASc score the patient should have anticoagulation, but given her recent pacemaker implant, it was recommended to be done 4-5 days after surgery. Patient while address the need for anticoagulation with her guest services. She will be continued on her previous home medication. The patient will also be prescribed doxycycline 100 mg p.o. twice a day for an additional two days. She was instructed to not abduct or raise her left arm. She will also be provided a commode at the time of discharge. All questions answered. Physical examination General: Alert and Oriented x3. No acute distress. Well-nourished. Eyes: EOMI. Anicteric. HENT: Moist mucous membranes. Lungs: Clear to auscultation bilaterally. No accessory muscle use. Cardiovascular: Regular rate and rhythm. No murmur. No JVD. Abdomen: Soft, non-tender and non-distended. No palpable masses. Extremities: No edema. Non-tender. Skin: No rashes or lesions. Warm. Neurologic: No focal neurological deficits. CN II-XII grossly intact, but not individually tested. Psychiatric: Cooperative. Appropriate mood and affect. Total time spent with patient discussing and formulating plan of care: 35 minutes. This medical document was created using an electronic medical record system with [employer]ation system. Although this document has been carefully reviewed, there may still be some phonetic and typographical errors. These areas are purely typographical due to imperfections of the software programs, and do not reflect any compromise in the patient's medical care. Consults/Reason for consult Cardiology: Symptomatic bradycardia with complete heart block Operations or Procedures 01/02/2024: Permanent pacemaker implant Condition at Discharge: Good Final Diagnosis/Problems List Sick sinus syndrome with severe bradycardia Secondary Diagnosis: -sick sinus syndrome, status post permanent pacemaker implant -history of recent TAVR -coronary artery disease -primary hypertension -diabetes mellitus -acute on chronic systolic heart failure -NSTEMI type 2 Discharge Disposition: Home Discharge Instruct/Medications Diet: Cardiac 2g Na,low cholest Activity: No Restrictions, As Tolerated Activity comment: Continue to use walker. Bedside commode Follow Up/Referral: Follow up with [facility] within one week Medications: Metoprolol tartrate 50 mg p.o. twice a day Doxycycline 100 mg p.o. b.i.d. x2 days Continue all previous home medications other than new dose of metoprolol tartrate Discharge Statement: "Patient was advised to return to the ER or call 911 if any headaches, dizziness, shortness of breath, chest pain, abdominal pain, bleeding, fevers, or worsening of medical condition. Patient was counseled about treatment plan, medications, possible side effects, patientverbalized understanding. All questions were answered to the best of my ability. This discharge took greater then 30 minutes in planning, reviewing documentation, counseling the patient, and discussing with other team members." ASSESSMENT ASSESSMENT Assessment Sick sinus syndrome with severe bradycardia Date of Service: Jan 04, 2024 Billing Provider: MARIBEL BRANNON NP Common Visit Codes: [id number] DISCH DAY >30min MARIBEL BRANNON NP Jan 04, 2024 10:34
--- NOTE | 2024-01-04 10:35 | DVHPN2 ---
Consult Progress Note Subjective Patient reports: Feels better Review of Systems: CVS:Abnormal (intermittent palpittions) Objective vital signs Vital Sign Date Time Temp Pulse Resp B/P (MAP) Pulse Ox O2 Delivery O2 Flow Rate FiO2 01/04/24 10:22 117 128/69 01/04/24 08:50 98.8 20 95 98.8 01/03/24 20:00 Room Air* 0 21 Total Intake and Output 01/03/24 01/03/24 01/04/24 15:00 23:00 07:00 Intake Total 860 ml 860 ml 0 ml Output Total 500 ml 200 ml Balance 860 ml 360 ml -200 ml medications Current Medications Medications Dose Ordered Sig/Marcelo Route Start Time Stop Time Status Last Admin Dose Admin Atorvastatin Calcium 40 mg HS PO 01/01/24 22:00 01/03/24 21:47 40 MG Zolpidem Tartrate 5 mg QHSP PRN PO 01/01/24 15:15 01/03/24 22:57 5 MG Docusate Sodium 100 mg DAILY PO 01/02/24 10:00 01/03/24 08:52 100 MG Nitroglycerin 0.4 mg Q5MINP PRN SL 01/01/24 15:15 Ondansetron HCl 4 mg Q4HP PRN IV 01/01/24 15:15 Morphine Sulfate 2 mg Q30M PRN IV 01/01/24 15:15 Diagnostic Test (Pha) 1 strip ACHS 01/02/24 07:00 01/04/24 06:14 1 STRIP Insulin Human Regular ACHS SC 01/02/24 07:00 01/04/24 06:15 2 UNITS Dextrose 50 ml UD PRN IV 01/02/24 05:30 Acetaminophen 650 mg Q6HP PRN PO 01/02/24 12:15 01/02/24 12:38 650 MG Aspirin 81 mg DAILY PO 01/03/24 10:00 01/04/24 10:21 81 MG Clopidogrel Bisulfate 75 mg DAILY PO 01/03/24 10:00 01/04/24 10:21 75 MG Metoprolol Tartrate 50 mg BID PO 01/04/24 10:00 01/04/24 10:22 50 MG Examination: CVS:Abnormal (Irregular HR, Tachycardia) laboratory and microbiology Laboratory Tests 01/04/24 08:21 01/03/24 04:27 Test 01/04/24 08:21 Range/Units Serum Glucose 96 74-106 mg/dL Problem List/Assessment/Plan Problem List/Assessment/Plan Problem List/Assessment/Plan Near-syncope with intermittent complete heart block and sinus arrest pauses status post permanent pacemaker implantation Recent transcatheter aortic valve replacement, 12/25/2023 Coronary artery disease status post PTCA including 1 ELIOT, 10/03/2023 Hypertension Dyslipidemia Tachycardia, PAT A Fib? Plan/Recommendation The patient with a complete heart block and frequent sinus arrest pauses underwent an emergent temporary transvenous pacemaker implantation at bedside with settings including a HR of 80 bpm and Output at 5.0 mA. On DAPT and beta-isaiah Monitor ECG changes closely and notify. CHEST X-RAY for tomorrow morning Pacemaker assessment Metoprolol 50 mg p.o. twice daily. Case Discussed with Dr Miguel. S/p ppm placement. Patient having intermittent episodes of tachycardia, possible PAT. EKG on possible atrial fibrillation with RVR though under further review noted to be sinus tachycardia with first-degree, long [place] interval. Interrogation this morning showing normal functioning device. CXR showing appropriate placed leads, no acute cardiopulmonary disease. 5 mg metoprolol IV push x1 given. Continue on metoprolol 50 mg p.o. twice daily. Continue on aspirin and Plavix for recent ELIOT stent. Patient to follow up postop 1 week with [facility] as well as continued device monitoring/interrogation. If heart rate remains stable, patient is stable for discharge from cardiology standpoint with above recs. Critical care, time spent: 45 minutes This medical document was created using an electronic medical record system with voice recognition software and computerized dictation system. Although this document has been carefully reviewed, there might still be some phonetic and typographical errors. Occasional wrong-word or ``sound-alike substitutions may have occurred due to the inherent limitations of voice recognition software. These areas are purely typographical due to imperfections of the software programs and do not reflect any compromise in the patient's medical care. Please read the chart carefully and recognize, using context, where these substitutions have occurred. Thank you for allowing us to participate in this patient's care. Please call if you have any questions or concerns. Plan discussed with: Patient, Spouse, Son Date of Service: Jan 04, 2024 Billing Provider: JODIE NARANJO [facility] Common Visit Codes: [id number] INP/OBS CARE(HIGH), [id number] CARE 30-74 MIN JODIE NARANJO [facility] Jan 04, 2024 10:35
[2024-01-04] MEDS: DOXYCYCLINE 100 MG TAB/CAP PO ONE (11:12)
[2024-01-04 12:13] VITALS: BP 128/69; PULSE 117; TEMP 37.1; O2SAT 95
== END 2024-01-04 13:20 | disposition home or self-care (01) | DRG 242 ==
LOC: ER 11:55 → EDBD 11:55 → OVERFLOW 15:09 → TELE-CENTR 01-02 19:00
PROVIDERS: ADMIT Hospitalist; ATTEND Nurse Practitioner Acute Care
PROC: 5A1213Z Performance of Cardiac Pacing, Intermittent (ICD-10-PCS; principal; 2024-01-01)
PROC: 0JH606Z Insertion of Pacemaker, Dual Chamber into Chest Subcutaneous Tissue and Fascia, Open Approach (ICD-10-PCS; 2024-01-02)
PROC: 02H63JZ Insertion of Pacemaker Lead into Right Atrium, Percutaneous Approach (ICD-10-PCS; 2024-01-02)
PROC: B517YZZ Fluoroscopy of Left Subclavian Vein using Other Contrast (ICD-10-PCS; 2024-01-02)
PROC: 02HK3JZ Insertion of Pacemaker Lead into Right Ventricle, Percutaneous Approach (ICD-10-PCS; 2024-01-02)
DX: I44.2 Atrioventricular block, complete (principal); I21.A1 Myocardial infarction type 2; I50.23 Acute on chronic systolic (congestive) heart failure; E11.65 Type 2 diabetes mellitus with hyperglycemia; I25.10 Atherosclerotic heart disease of native coronary artery without angina pectoris; I11.0 Hypertensive heart disease with heart failure; I45.5 Other specified heart block; I49.5 Sick sinus syndrome; E78.5 Hyperlipidemia, unspecified; I48.91 Unspecified atrial fibrillation; Z95.2 Presence of prosthetic heart valve; Z90.710 Acquired absence of both cervix and uterus; Z98.61 Coronary angioplasty status
CPT/HCPCS: 36415; 71045; 80048; 80053; 80061; 81001; 82962; 83036; 83735; 83880; 84443; 84484; 85025; 85610; 85730; 86850; 86900; 86901; 87081; 93005; 93306; 99152; 99291; 99292; C1751; G0378; J1815; J2250; J7060; Q9967

== ENCOUNTER 2024-01-06 18:12 | Inpatient (IN) | payer OTHER ==
[~2024-01-06] VITALS: Ht 144.8 cm; Wt 59.8 kg
[~2024-01-06 18:12] MED LIST: ACET-1304 PO; ASPI-543 PO; ATOR40TA52 PO; CLOP75TA70 PO; DOXY100C79 PO; EMPA1TAB3 PO; MET50T PO; NYST150P2 XX; OMEP20TA PO
[2024-01-06 18:50] LABS: Basophils # (auto) 0.1 10 ^3/uL (0-0.2); Basophils % (auto) 0.4 % (0.0-2.0); Eosinophils # (auto) 0.1 10 ^3/uL (0-0.8); Eosinophils % (auto) 0.7 % (0.0-7.0); Hemoglobin 11.6 g/dL (12.2-16.2); Lymphocytes # (auto) 2.7 10 ^3/uL (0.4-5.4); Lymphocytes % (auto) 19.5 % (10.0-50.0); Mean Corpuscular Hemoglobin 28.4 pg (28.0-32.0); Mean Corpuscular Hgb Conc. 33.1 g/dL (32.0-36.0); Mean Corpuscular Volume 85.7 fL (80.0-100.0); Monocytes # (auto) 0.9 10 ^3/uL (0-1.3); Monocytes % (auto) 6.2 % (0.0-12.0); Neutrophils # (auto) 10.1 10 ^3/uL (1.6-8.6); Neutrophils % (auto) 73.2 % (37.0-80.0); Platelet Count (auto) 171 10^3/uL (140-450); Red Blood Cells 4.09 10^6/uL (4.0-5.20); Red Cell Distribution Width 15.5 % (11.8-14.3); White Blood Cell 13.9 10^3/uL (4.4-10.8)
[2024-01-06 19:04] LABS: INR 1.09 (0.9-1.15); Partial Thromboplastin Time 26.7 SEC (24.5-34.5); Prothrombin Time 11.5 sec (9.3-11.8)
--- NOTE | 2024-01-06 19:04 | DVH ---
CHEST RADIOGRAPH Indication: CP Technique: Single frontal view of the chest was obtained COMPARISON: XY CHEST PORTABLE on DOS: 01/03/24, XY CHEST PORTABLE on DOS: 01/03/24, XY CHEST PORTABLE on DOS: 01/02/24, XY CHEST XRAY 1 VIEW on DOS: 01/01/24 FINDINGS: Lines and Tubes: Left-sided pacemaker / AICD with 2 cardiac leads. Lungs: Clear Pleura: No effusion. No pneumothorax. Cardiomediastinal contours: Unremarkable Bones: Unremarkable IMPRESSION: 1. No acute disease.
[2024-01-06 19:06] LABS: Alanine Aminotransferase 17 U/L (7-40); Albumin 3.8 g/dL (3.2-4.8); Alkaline Phosphatase 116 U/L (46-116); Anion Gap 10 (5-15); Aspartate Aminotransferase 15 U/L (13-40); BUN/Creatinine Ratio 25.3 (10.0-20.0); Blood Urea Nitrogen 22 mg/dL (9-23); Carbon Dioxide 23 mmol/L (20-31); Chloride 104 mmol/L (98-107); Glucose 270 mg/dL (74-106); Magnesium 1.8 mg/dL (1.6-2.6); Potassium 3.8 mmol/L (3.5-5.1); Sodium 137 mmol/L (136-145)
[2024-01-06 19:07] LABS: Bilirubin, Total 1.2 mg/dL (0.2-1.0); Total Protein 7.4 g/dL (5.7-8.2)
--- NOTE | 2024-01-06 19:18 | ED.PDOC ---
History of Present Illness HPI Comments 88 y /o F, with a Hx of bradycardia s/p pacemaker, DM, HLD, HTN, and heart block and a FMHx of heart disease, presents for c/o non-radiating, 10/10 left-sided chest pain that began 1 hour ago at rest. Patient also reports on burning pain over her left nipple region. Patient comments on recent pacemaker placement on 01/02/24 for bradycardia. Endorses on no nausea, vomiting, palpitations, shortness of breath, fever, chills, or other associated symptoms or modifiers at this time. Chief Complaint: Chest Pain Time Seen by MD: 18:45 Primary Care Provider: ASHISH Reviewed Notes: Nurses Notes, Medications, Allergies Allergies: Coded Allergies: NO KNOWN ALLERGIES (Unverified , 01/01/24) Home Meds Active Scripts Doxycycline (Monohydrate) (Doxycycline) 100 Mg Cap, 100 MG PO BID for 2 Days, #4 CAP Prov:MARIBEL BRANNON ENTERTAINMENT REPORTER 01/04/24 Metoprolol Tartrate (LOPRESSOR TABLET) 50 Mg Tb, 1 TAB PO BID for 30 Days, #60 TAB 5 Refills Prov:MARIBEL BRANNON ENTERTAINMENT REPORTER 01/04/24 Reported Medications Nystatin (Nystatin) 1 Pow Pow, 1 POW XX TID for LEFT GROIN, POW 01/02/24 Acetaminophen (Tylenol Extra Strength) 500 Mg Tab, 500 MG PO, TAB 01/02/24 Aspirin (Aspir-Low) 81 Mg Tab, 81 MG PO DAILY for 30 Days, MG 01/02/24 Omeprazole (Gnp Omeprazole) 20 Mg Tab, 20 MG PO DAILY, TAB 01/02/24 Empagliflozin (Jardiance) 25 Mg Tab, 25 MG PO, TAB 01/02/24 Clopidogrel Bisulfate (CLOPIDOGREL) 75 Mg Tab, 75 MG PO DAILY, TAB 01/02/24 Atorvastatin Calcium (ATORVASTATIN CALCIUM) 40 Mg Tab, 40 MG PO DAILY, TAB 01/02/24 Discontinued Reported Medications Metoprolol Tartrate (Metoprolol Tartrate) 25 Mg Tab, 25 MG PO for 30 Days, MG 01/02/24 Information Source: Patient Mode of Arrival: Wheelchair Severity: Moderate Timing: Hours Duration: Since onset Prehospital treatment: None Past Medical History PAST MEDICAL HISTORY: DM, High Lipids, HTN Past Medical History (Other): heart block, bradycardia s/p PM Surgical History: Hysterectomy, Pacemaker COMPLIANCE ANALYST History: No Pertinent COMPLIANCE ANALYST History Family History Family History: No family hx of Cancer, No family hx of DM, No family hx of HTN, No family hx ofKidney gigi, No family hx of Liver gigi, No family hx of Lung gigi, No family hx of Stroke, Family hx of heart gigi Social History Smoker: Non-Smoker Alcohol: Denies ETOH Use Drugs: Denies Drug Use Lives In: Home Constitutional: denies: chills, diaphoresis, fatigue, fever, malaise, sweats, weakness, others EENTM: denies: blurred vision, double vision, ear bleeding, ear discharge, ear drainage, ear pain, ear ringing, eye pain, eye redness, hearing loss, mouth pain, mouth swelling, nasal discharge, nose bleeding, nose congestion, nose pain, photophobia, tearing, throat pain, throat swelling, voice changes, others Respiratory: denies: cough, hemoptysis, orthopnea, SOB at rest, shortness of breath, SOB with excertion, stridor, wheezing, others Cardiovascular: reports: chest pain; denies: dizzy spells, diaphoresis, Dyspnea on exertion, edema, irregular heart beat, left arm pain, lightheadedness, palpitations, PND, syncope, others Gastrointestinal: denies: abdomen distended, abdominal pain, blood streaked bowels, constipated, diarrhea, dysphagia, difficulty swallowing, hematemesis, melena, nausea, poor appetite, poor fluid intake, rectal bleeding, rectal pain, vomiting, others Genitourinary: denies: abnormal vagina bleeding, burning, dyspareunia, dysuria, flank pain, frequency, hematuria, incontinence, pain, , vagina discharge, urgency, others Neurological: denies: dizziness, fainting, headache, left sided numbness, left sided weakness, numbness, paresthesia, pre-existing deficit, right sided numbness, right sided weakness, seizure, speech problems, tingling, tremors, weakness, others Musculoskeletal: denies: back pain, gout, joint pain, joint swelling, muscle pain, muscle stiffness, neck pain, others Integumetry: denies: bruises, change in color, change in hair/nails, dryness, laceration, lesions, lumps, rash, wounds, others Allergic/Immunocompromised: denies: Difficulty Healing, Frequent Infections, Hives, Itching, others Hematologic/Lymphatic: denies: anemia, blood clots, easy bleeding, easy bruising, swollen glands, others Endocrine: denies: excessive hunger, excessive sweating, excessive thirst, excessive urination, flushing, intolerance to cold, intolerance to heat, unexplained weight gain, unexplained weight loss, others Psychiatric: denies: anxiety, bipolar disorder, depression, hopeless, panic disorder, schizophrenia, sleepless, suicidal, others All Other Systems: Reviewed and Negative Physical Exam General Appearance: Moderate Distress, Obese HEENT: Normal ENT Inspection, Pharynx Normal, TMs Normal Neck: Full Range of Motion, Non-Tender, Normal, Normal Inspection Respiratory: Chest Non-Tender, Lungs Clear, No Accessory Muscle Use, No Respiratory Distress, Normal Breath Sounds Cardiovascular: No Edema, No JVD, No Murmur, No Gallop, Regular Rate/Rhythm, Other (Pacemaker to the left chest) Breast Exam: Deferred Gastrointestinal: No Organomegaly, Non Tender, No Pulsatile Mass, Normal Bowel Sounds, Soft Genitalia: Deferred Pelvic: Deferred Rectal: Deferred Extremities: No calf tenderness, Normal capillary refill, Normal inspection, Normal range of motion, Non-tender, No pedal edema Musculoskeletal : Apperance: Normal Neurologic: Alert, truck striker II-XII nml as Tested, No Motor Deficits, Normal Affect, Normal Mood, No Sensory Deficits Cerebellar Function: Normal Reflexes: Normal Skin: Dry, Normal Color, Warm Lymphatic: No Adenopathy Was a procedure done? Was a procedure done?: No EKG EKG : Pulse Rate (adult): 86 [place]: Normal Cardiac Rhythm: NSR, PVC's Block: None Hypertrophy: None ST: Normal Differential Dx Considerations may include: [place], ACS, PE, angina, costochondritis, pericarditis, gastritis, gastroenteritis, anxiety, and musculoskeletal pain X-Ray, Labs, Meds, VS Vital Signs Date Time Temp Pulse Resp B/P (MAP) Pulse Ox O2 Delivery O2 Flow Rate FiO2 01/06/24 19:18 86 01/06/24 18:27 87 01/06/24 18:23 97.8 74 18 116/72 (87) 100 01/06/24 18:17 86 Lab Test 01/06/24 19:12 01/06/24 18:20 Range/Units Troponin I High Sensitivity Pending 15 </=34 ng/L White Blood Count 13.9 #H 4.4-10.8 10^3/uL Red Blood Count 4.09 4.0-5.20 10^6/uL Hemoglobin 11.6 L 12.2-16.2 g/dL Hematocrit 35.0 L 36.0-46.0 % Mean Corpuscular Volume 85.7 80.0-100.0 fL Mean Corpuscular Hemoglobin 28.4 28.0-32.0 pg Mean Corpuscular Hemoglobin Concent 33.1 32.0-36.0 g/dL Red Cell Distribution Width 15.5 H 11.8-14.3 % Platelet Count 171 140-450 10^3/uL Mean Platelet Volume 9.6 6.9-10.8 fL Neutrophils (%) (Auto) 73.2 37.0-80.0 % Lymphocytes (%) (Auto) 19.5 10.0-50.0 % Monocytes (%) (Auto) 6.2 0.0-12.0 % Eosinophils (%) (Auto) 0.7 0.0-7.0 % Basophils (%) (Auto) 0.4 0.0-2.0 % Neutrophils # (Auto) 10.1 H 1.6-8.6 10 ^3/uL Lymphocytes # (Auto) 2.7 0.4-5.4 10 ^3/uL Monocytes # (Auto) 0.9 0-1.3 10 ^3/uL Eosinophils # (Auto) 0.1 0-0.8 10 ^3/uL Basophils # (Auto) 0.1 0-0.2 10 ^3/uL Nucleated Red Blood Cells 0.0 % Prothrombin Time 11.5 9.3-11.8 sec Prothrombin Time INR 1.09 0.9-1.15 Activated Partial Thromboplast Time 26.7 24.5-34.5 SEC Sodium Level 137 136-145 mmol/L Potassium Level 3.8 3.5-5.1 mmol/L Chloride Level 104 98-107 mmol/L Carbon Dioxide Level 23 20-31 mmol/L Anion Gap 10 5-15 Blood Urea Nitrogen 22 9-23 mg/dL Creatinine 0.87 # 0.550-1.02 mg/dL Glomerular Filtration Rate Calc 64 >90 mL/min BUN/Creatinine Ratio 25.3 H 10.0-20.0 Serum Glucose 270 H 74-106 mg/dL Calcium Level 10.0 8.7-10.4 mg/dL Magnesium Level 1.8 1.6-2.6 mg/dL Total Bilirubin 1.2 H 0.2-1.0 mg/dL Aspartate Amino Transferase (AST) 15 13-40 U/L Alanine Aminotransferase (ALT) 17 7-40 U/L Alkaline Phosphatase 116 46-116 U/L B-Type Natriuretic Peptide 276.19 0-100 pg/mL Total Protein 7.4 5.7-8.2 g/dL Albumin 3.8 3.2-4.8 g/dL [place] [id number] Ph: [phone] DIAGNOSTIC IMAGING Diagnostic Imaging Report : [id number] Signed PATIENT: LEEANN WYATT ACCT: [id number] UNIT: [id number] : 1935 LOC: ER ROOM / BED: / AGE / SEX: 88 / F ADM STATUS: REG ER SERVICE 20 ORDERING PHYSICIAN: GRANT LOGAN MD PROCEDURE(s): CXRP - CHEST PORTABLE REASON: CP ORDER NUMBER(s): [id number], ACCESSION NUMBER(s): [id number] CHEST RADIOGRAPH Indication: CP Technique: Single frontal view of the chest was obtained COMPARISON: XY CHEST PORTABLE on DOS: 01/03/24, XY CHEST PORTABLE on DOS: 01/03/24, XY CHEST PORTABLE on DOS: 01/02/24, XY CHEST XRAY 1 VIEW on DOS: 01/01/24 FINDINGS: Lines and Tubes: Left-sided pacemaker / AICD with 2 cardiac leads. Lungs: Clear Pleura: No effusion. No pneumothorax. Cardiomediastinal contours: Unremarkable Bones: Unremarkable IMPRESSION: 1. No acute disease. ATED BY: BRENNEN WADDELL MD DICTATED DATE/TIME: 01/06/241901 SIGNED BY: BRENNEN WADDELL MD SIGNED DATE/TIME: 01/06/241901 CC: The patient's CBC shows an elevated white blood cell count of 13.9 The rest of the CBC is within normal limits The chemistry panel is within normal limits. The troponin level is negative The patient was a [facility] patient We did give the patient morphine and Zofran for the pain [facility] has authorized us to admit the patient here. We are going to order an echocardiogram We will also have the pacemaker checked The patient was being admitted at this time The authorization #[id number] Images Reviewed?: Images reviewed and evaluated by me Time of 1ST Reevaluation: 19:15 Reevaluation 1ST: Unchanged Patient Education/Counseling: Diagnosis, Treatment, Prognosis Family Education/Counseling: Diagnosis, Treatment, Prognosis Departure 1 Departure Time of Disposition: 20:15 Impression: Primary Impression: Acute chest pain Additional Impression: Status post biventricular pacemaker Disposition: ADMITTED INPATIENT Admit to: [facility] Condition: Fair Critical Care Note Critical Care Time?: Yes (35 min-critical care time only) Stability Stability form required: Yes Unstable for transfer: Telemetry monitoring (Telemetry monitoring required), ED Physician Assesment (Clinical assesment) Heart Score Heart Score: Heart Score Response (Comments) Value History N/A 0 EKG N/A 0 Age N/A 0 Risk Factors N/A 0 Troponin N/A 0 Total 0 I personally scribed for GRANT LOGAN MD ([email or web address]) on 01/06/24 at 19:18. Electronically submitted by Didier Castillo ([email or web address]). GRANT LOGAN MD Jan 06, 2024 19:18
[2024-01-06] MEDS ORDERED: NITROGLYCERIN 0.4 MG SL TAB SL PRN (22:00)
[2024-01-06] MEDS ORDERED: DEXTROSE (50%) 50ML SYRG IV PRN (22:00)
[2024-01-06] MEDS ORDERED: MORPHINE SULFATE INJ 2 MG/ml SYRG IV PRN (22:00)
[2024-01-07] MEDS: ACCU-CHEK COMFORT CURVE STRIP VI SCH (00:52)
[2024-01-07] MEDS: ATORVASTATIN 20 MG TAB PO SCH (01:02)
[2024-01-07] MEDS: ONDANSETRON HCL 4 MG/2 ML VIAL IV ONE (01:03)
[2024-01-07] MEDS: METOPROLOL TARTRATE 50 MG TAB PO SCH (01:03)
[2024-01-07] MEDS: MORPHINE SULFATE 4 MG/ML SYR/VIAL IV ONE (01:03)
[2024-01-07] MEDS: ASPirin 81 mg TAB PO ONE (01:04)
[2024-01-07] MEDS: InsuLIN REG 1unit/0.01ml Soln (100units/ml) SC SCH (01:05)
[2024-01-07 01:30] LABS: Urine Bacteria None Seen /hpf (None Seen)
[2024-01-07 01:37] LABS: Urine Blood Negative /uL (Negative); Urine Clarity Clear (Clear); Urine Color Light-Yellow (Yellow); Urine Mucus FEW (None Seen); Urine Protein, UAD Negative (Negative); Urine Specific Gravity 1.038 (1.001-1.035); Urine Urobilinogen Normal (Negative); Urine WBC 3 /hpf (0 - 5)
[2024-01-07 01:41] VITALS: PULSE 78; RESP 13; O2SAT 98
[2024-01-07] MEDS: ACETAMINOPHEN 325 MG TAB PO PRN (04:56)
[2024-01-07 05:01] LABS: Anion Gap 9 (5-15); Carbon Dioxide 25 mmol/L (20-31); Chloride 106 mmol/L (98-107); Potassium 3.7 mmol/L (3.5-5.1); Sodium 140 mmol/L (136-145)
[2024-01-07 05:02] LABS: Calcium 9.3 mg/dL (8.7-10.4)
[2024-01-07 05:07] LABS: BUN/Creatinine Ratio 28.6 (10.0-20.0); Blood Urea Nitrogen 16 mg/dL (9-23); Glucose 106 mg/dL (74-106)
--- NOTE | 2024-01-07 06:15 | DVHHP2 ---
History of Present Illness Reason for Visit: Chest pain History of Present Illness 88-year-old female presents for evaluation of chest pain. Patient presents with left-sided sharp chest pain that is nonradiating has been ongoing for the past one day. She reports undergoing pacemaker placement five days. Denies nausea or vomiting. No shortness a breath. No other acute complaints reported. Past Medical History Hypertension, dyslipidemia, diabetes mellitus, sick sinus Past Surgical History Pacemaker and hysterectomy Family History Noncontributory Smoke: No ALCOHOL: none Drugs: None Lives: with Family Review of Systems Review of Systems Review of systems are currently negative otherwise addressed in HPI. Allergies: Coded Allergies: NO KNOWN ALLERGIES (Unverified , 01/01/24) Medications Current Medications Medications Dose Ordered Sig/Marcelo Route Start Time Stop Time Status Last Admin Dose Admin Aspirin 162 mg DAILY PO 01/07/24 10:00 Atorvastatin Calcium 40 mg HS PO 01/06/24 22:00 01/07/24 01:02 40 MG Clopidogrel Bisulfate 75 mg DAILY PO 01/07/24 10:00 Metoprolol Tartrate 50 mg BID PO 01/06/24 22:00 01/07/24 01:03 50 MG Diagnostic Test (Pha) 1 strip ACHS 01/06/24 22:00 01/07/24 00:52 1 STRIP Insulin Human Regular ACHS SC 01/06/24 22:00 01/07/24 01:05 3 UNITS Dextrose 50 ml UD PRN IV 01/06/24 22:00 Ondansetron HCl 4 mg Q4HP PRN IV 01/06/24 22:00 Enoxaparin Sodium 40 mg DAILY SC 01/07/24 10:00 Acetaminophen 650 mg Q6HP PRN PO 01/06/24 22:00 01/07/24 04:56 650 MG Nitroglycerin 0.4 mg Q5MINP PRN SL 01/06/24 22:00 Morphine Sulfate 2 mg Q30M PRN IV 01/06/24 22:00 Exam Vital Signs Vital Signs Date Time Temp Pulse Resp B/P (MAP) Pulse Ox O2 Delivery O2 Flow Rate FiO2 01/07/24 04:00 78 01/07/24 02:18 135/50 01/07/24 02:00 14 01/07/24 00:40 98.0 98 98.0 Exam Gen: 88-year-old female in no apparent distress. Skin: Warm, dry, normal color and texture, no rash. HEENT: Normocephalic atraumatic, mucous membranes moist and pink. Neck: Cervical and supraclavicular nodes normal without enlargement, trachea is midline, thyroid gland is normal without masses. Pulmonary: Clear to auscultation and percussion bilaterally. Cardiac: Regular rate and rhythm. No murmur Abdomen: Soft, nontender, nondistended, bowel sounds present all 4 quadrants, no guarding, no rigidity, no organomegaly. Extremities: No cyanosis, clubbing, no edema Neuro: Cranial nerves II through XII grossly intact, normal affect and speech, no focal motor deficits. Labs/Xrays ORDERING PHYSICIAN: GRANT LOGAN MD PROCEDURE(s): CXRP - CHEST PORTABLE REASON: CP ORDER NUMBER(s): [id number], ACCESSION NUMBER(s): [id number] CHEST RADIOGRAPH Indication: CP Technique: Single frontal view of the chest was obtained COMPARISON: XY CHEST PORTABLE on DOS: 01/03/24, XY CHEST PORTABLE on DOS: 01/03/24, XY CHEST PORTABLE on DOS: 01/02/24, XY CHEST XRAY 1 VIEW on DOS: 01/01/24 FINDINGS: Lines and Tubes: Left-sided pacemaker / AICD with 2 cardiac leads. Lungs: Clear Pleura: No effusion. No pneumothorax. Cardiomediastinal contours: Unremarkable Bones: Unremarkable IMPRESSION: 1. No acute disease. Labs Test 01/07/24 04:17 01/07/24 01:16 01/07/24 00:38 01/06/24 19:12 Range/Units Sodium Level 140 136-145 mmol/L Potassium Level 3.7 3.5-5.1 mmol/L Chloride Level 106 98-107 mmol/L Carbon Dioxide Level 25 20-31 mmol/L Anion Gap 9 5-15 Blood Urea Nitrogen 16 9-23 mg/dL Creatinine 0.56 # 0.550-1.02 mg/dL Glomerular Filtration Rate Calc 88 >90 mL/min BUN/Creatinine Ratio 28.6 H 10.0-20.0 Serum Glucose 106 74-106 mg/dL Calcium Level 9.3 8.7-10.4 mg/dL Urine Color Light-yellow Yellow Urine Clarity Clear Clear Urine pH 5.0 5.0-9.0 Urine Specific [place] 1.038 H 1.001-1.035 Urine Protein Negative Negative Urine Ketones 1+ H Negative Urine Blood Negative Negative /uL Urine Nitrite Negative Negative Urine Bilirubin Negative Negative Urine Urobilinogen Normal Negative mg/dL Urine Leukocyte Esterase Negative Negative /uL Urine RBC 2 0 - 4 /hpf Urine WBC 3 0 - 5 /hpf Urine Squamous Epithelial Cells Mod <5 /hpf Urine Bacteria None seen None Seen /hpf Urine Mucus Few None Seen Urine Glucose 4+ H Normal mg/dL POC Glucose 174 H 70-106 mg/dl Troponin I High Sensitivity 14 </=34 ng/L Test 01/06/24 18:20 Range/Units White Blood Count 13.9 #H 4.4-10.8 10^3/uL Red Blood Count 4.09 4.0-5.20 10^6/uL Hemoglobin 11.6 L 12.2-16.2 g/dL Hematocrit 35.0 L 36.0-46.0 % Mean Corpuscular Volume 85.7 80.0-100.0 fL Mean Corpuscular Hemoglobin 28.4 28.0-32.0 pg Mean Corpuscular Hemoglobin Concent 33.1 32.0-36.0 g/dL Red Cell Distribution Width 15.5 H 11.8-14.3 % Platelet Count 171 140-450 10^3/uL Mean Platelet Volume 9.6 6.9-10.8 fL Neutrophils (%) (Auto) 73.2 37.0-80.0 % Lymphocytes (%) (Auto) 19.5 10.0-50.0 % Monocytes (%) (Auto) 6.2 0.0-12.0 % Eosinophils (%) (Auto) 0.7 0.0-7.0 % Basophils (%) (Auto) 0.4 0.0-2.0 % Neutrophils # (Auto) 10.1 H 1.6-8.6 10 ^3/uL Lymphocytes # (Auto) 2.7 0.4-5.4 10 ^3/uL Monocytes # (Auto) 0.9 0-1.3 10 ^3/uL Eosinophils # (Auto) 0.1 0-0.8 10 ^3/uL Basophils # (Auto) 0.1 0-0.2 10 ^3/uL Nucleated Red Blood Cells 0.0 % Prothrombin Time 11.5 9.3-11.8 sec Prothrombin Time INR 1.09 0.9-1.15 Activated Partial Thromboplast Time 26.7 24.5-34.5 SEC Magnesium Level 1.8 1.6-2.6 mg/dL Total Bilirubin 1.2 H 0.2-1.0 mg/dL Aspartate Amino Transferase (AST) 15 13-40 U/L Alanine Aminotransferase (ALT) 17 7-40 U/L Alkaline Phosphatase 116 46-116 U/L B-Type Natriuretic Peptide 276.19 0-100 pg/mL Total Protein 7.4 5.7-8.2 g/dL Albumin 3.8 3.2-4.8 g/dL Assessment/Plan Assessment/Plan Assessment Chest pain, etiology undetermined Status post pacemaker Diabetes mellitus Hypertension Plan Admit the patient to telemetry to the hospitalist Cardiology consultation Resume home medications Continue treatment per orders. Plan discussed with: Patient My Orders Orders - KATE CHILDRESS Procedure Category Date Status Time Aspirin Tablet PHA 01/07/24 In Process 10:00 Atorvastatin (Lipitor) PHA 01/06/24 In Process 22:00 Clopidogrel Bisulfate PHA 01/07/24 In Process (Plavix) 10:00 Metoprolol Tartrate PHA 01/06/24 In Process Tablet (Lopressor Ta 22:00 * Cardiology Consult CONS 01/06/24 Transmitted 21:56 Glucose Blood PHA 01/06/24 In Process (Accu-Chek Comfort 22:00 Insulin R (Human) PHA 01/06/24 In Process (Insulin R) 22:00 Dextrose 50% Syringe PHA 01/06/24 In Process 22:00 Admit ADMIT 01/06/24 Transmitted 21:56 Ondansetron Hcl PHA 01/06/24 In Process (Zofran) 22:00 Enoxaparin Sodium PHA 01/07/24 In Process (Lovenox) 10:00 Cardiac DIET 01/07/24 Transmitted Diet-2gna,Lofat,Lochol Breakfast Condition: Fair GABRIEL 01/06/24 In Process 21:56 Acetaminophen Tablet PHA 01/06/24 In Process (Tylenol Tablet) 22:00 Bedrest With Bathroom GABRIEL 01/06/24 In Process Privileg 21:56 Nitroglycerin PHA 01/06/24 In Process Sublingual (Ntrostat 22:00 Morphine Sulfate PHA 01/06/24 In Process Injection 22:00 Stat Ekg For Chest GABRIEL 01/06/24 In Process Pain 21:56 Notify Of Changes [facility] 01/06/24 In Process From Base 21:56 Ticketer For [facility] 01/06/24 In Process 24 Hours 21:56 Emergency Dysrhythmia [facility] 01/06/24 In Process Protocol 21:56 Rhythm Strips Once [facility] 01/06/24 In Process Every Shift 21:56 Oxygen By Nasal RT 01/06/24 Transmitted Cannula 21:56 Date of Service: Jan 07, 2024 Billing Provider: KATE CHILDRESS Common Visit Codes: [id number] INP/OBS CARE (HIGH) KATE CHILDRESS Jan 07, 2024 06:15
--- NOTE | 2024-01-07 07:59 | ECG ---
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
[2024-01-07] MEDS: HYDROcodone-ACET 5/325MG TAB PO PRN (08:39)
[2024-01-07] MEDS: CLOPIDOGREL BISULFATE 75 MG TAB PO SCH (08:39)
[2024-01-07] MEDS: ASPirin 81 mg TAB PO SCH (08:39)
[2024-01-07] MEDS: ENOXAPARIN SOD 40 MG/0.4 ML SYRINGE SC SCH (08:40)
[2024-01-07] MEDS: HYDROcodone-ACET 5/325MG TAB ONE (08:40)
--- NOTE | 2024-01-07 09:17 | DVHCONRES ---
Date Seen: Jan 07, 2024 Resident Creating Document: MAXIMILIAN CALLES RESIDENT Referring Physician JEWELS Luther Reason for Consultation Chest pain History of Present Illness 88-year-old woman history of hypertension, hyperlipidemia, diabetes mellitus type 2, sick sinus syndrome who presented for evaluation due to chest pain. She describes the pain as sharp in nature. It was nonradiating. It was on the left side of the chest. It was has been going on for the past one day prior to admission. She had a pacemaker placement five days ago. She denies any nausea, vomiting, diarrhea constipation. No shortness of breath or palpitations. Cardiology consultation is called for evaluation of chest pain. Review of systems: 14 point review of systems is negative unless otherwise noted above. Past medical history: Hypertension, hyperlipidemia, diabetes mellitus type 2, sick sinus syndrome Past surgical history: Pacemaker, hysterectomy Medications: Reviewed Allergies: No known drug allergies. Family history: No family history of premature CAD. No family history of lung disease. Social history: Nonsmoker. No alcohol or illicit drug use. Lives with family. Family History: Patient reports no known family medical history. Allergies: Coded Allergies: NO KNOWN ALLERGIES (Unverified , 01/01/24) Home Meds Active Scripts Doxycycline (Monohydrate) (Doxycycline) 100 Mg Cap, 100 MG PO BID for 2 Days, #4 CAP Prov:MARIBEL BRANNON NP 01/04/24 Metoprolol Tartrate (LOPRESSOR TABLET) 50 Mg Tb, 1 TAB PO BID for 30 Days, #60 TAB 5 Refills Prov:MARIBEL BRANNON BRIDGE WELDER 01/04/24 Reported Medications Nystatin (Nystatin) 1 Pow Pow, 1 POW XX TID for LEFT GROIN, POW 01/02/24 Acetaminophen (Tylenol Extra Strength) 500 Mg Tab, 500 MG PO, TAB 01/02/24 Aspirin (Aspir-Low) 81 Mg Tab, 81 MG PO DAILY for 30 Days, MG 01/02/24 Omeprazole (Gnp Omeprazole) 20 Mg Tab, 20 MG PO DAILY, TAB 01/02/24 Empagliflozin (Jardiance) 25 Mg Tab, 25 MG PO, TAB 01/02/24 Clopidogrel Bisulfate (CLOPIDOGREL) 75 Mg Tab, 75 MG PO DAILY, TAB 01/02/24 Atorvastatin Calcium (ATORVASTATIN CALCIUM) 40 Mg Tab, 40 MG PO DAILY, TAB 01/02/24 Discontinued Reported Medications Metoprolol Tartrate (Metoprolol Tartrate) 25 Mg Tab, 25 MG PO for 30 Days, MG 01/02/24 Current Medications Current Medications Medications (Trade) Dose Ordered Sig/Marcelo Route PRN Reason Start Time Stop Time Status Last Admin Aspirin 162 mg DAILY PO 01/07/24 10:00 01/07/24 08:39 Atorvastatin Calcium (Lipitor) 40 mg HS PO 01/06/24 22:00 01/07/24 01:02 Clopidogrel Bisulfate (Plavix) 75 mg DAILY PO 01/07/24 10:00 01/07/24 08:39 Metoprolol Tartrate (Lopressor Tablet) 50 mg BID PO 01/06/24 22:00 01/07/24 08:40 Diagnostic Test (Pha) (Accu-Chek Comfort Curve T) 1 strip ACHS 01/06/24 22:00 01/07/24 07:20 Insulin Human Regular (InsuLIN R) ACHS SC 01/06/24 22:00 01/07/24 01:05 Dextrose 50 ml UD PRN IV Blood Sugar LESS THAN 60 01/06/24 22:00 Ondansetron HCl (Zofran) 4 mg Q4HP PRN IV NAUSEA / VOMITING 01/06/24 22:00 Enoxaparin Sodium (Lovenox) 40 mg DAILY SC 01/07/24 10:00 01/07/24 08:40 Acetaminophen (Tylenol Tablet) 650 mg Q6HP PRN PO PAIN SCALE 1-3 OR TEMP>100.4 01/06/24 22:00 01/07/24 04:56 Nitroglycerin (Ntrostat Sublingual) 0.4 mg Q5MINP PRN SL FOR CHEST PAIN 01/06/24 22:00 Morphine Sulfate 2 mg Q30M PRN IV FOR CHEST PAIN 01/06/24 22:00 Acetaminophen/ Hydrocodone Bitart ([place] 5/325MG Tab) 1 tab Q4HPRN PRN PO MODERATE PAIN (4-6 PAIN SCALE) 01/07/24 08:15 01/07/24 08:39 Morphine Sulfate 2 mg Q4HPRN PRN IV SEVERE PAIN (7-10 PAIN SCALE) 01/07/24 08:15 Vital Signs Vital Signs Date Time Temp Pulse Resp B/P (MAP) Pulse Ox O2 Delivery O2 Flow Rate FiO2 01/07/24 08:40 82 153/60 01/07/24 06:00 13 96 01/07/24 01:41 Room Air* 0 21 01/07/24 00:40 98.0 98.0 Physical Exam Gen.: Patient lying in bed in no apparent distress. On supplemental oxygen. He is breathing comfortably on room air. Head: Normocephalic, atraumatic Eyes: EOMI/PERRLA. Ears: Normal hearing. Normal anatomy. Neck/trachea: Trachea midline, supple. Nose: Normal external anatomy. Mouth: Moist mucous membranes. Chest: Fair air entry bilaterally. No wheezing or rhonchi. Cardio vascular: Positive S1, positive S2. Regular rate and rhythm. Abdomen: Positive bowel sounds in all 4 quadrants. Soft, non-tender, non- distended. : Deferred. Rectal: Deferred Skin: Warm, dry. Extremities: 2+ radial pulses bilaterally. No lower extremity edema. Neuro: Awake, alert, oriented x3. No gross motor or sensory deficits. Cranial nerves II through XII intact. Gait not assessed. Labs/Diagnostic Data Labs Test 01/07/24 07:19 01/07/24 04:17 01/07/24 01:16 01/06/24 19:12 Range/Units POC Glucose 81 70-106 mg/dl Sodium Level 140 136-145 mmol/L Potassium Level 3.7 3.5-5.1 mmol/L Chloride Level 106 98-107 mmol/L Carbon Dioxide Level 25 20-31 mmol/L Anion Gap 9 5-15 Blood Urea Nitrogen 16 9-23 mg/dL Creatinine 0.56 # 0.550-1.02 mg/dL Glomerular Filtration Rate Calc 88 >90 mL/min BUN/Creatinine Ratio 28.6 H 10.0-20.0 Serum Glucose 106 74-106 mg/dL Calcium Level 9.3 8.7-10.4 mg/dL Urine Color Light-yellow Yellow Urine Clarity Clear Clear Urine pH 5.0 5.0-9.0 Urine Specific [place] 1.038 H 1.001-1.035 Urine Protein Negative Negative Urine Ketones 1+ H Negative Urine Blood Negative Negative /uL Urine Nitrite Negative Negative Urine Bilirubin Negative Negative Urine Urobilinogen Normal Negative mg/dL Urine Leukocyte Esterase Negative Negative /uL Urine RBC 2 0 - 4 /hpf Urine WBC 3 0 - 5 /hpf Urine Squamous Epithelial Cells Mod <5 /hpf Urine Bacteria None seen None Seen /hpf Urine Mucus Few None Seen Urine Glucose 4+ H Normal mg/dL Troponin I High Sensitivity 14 </=34 ng/L Test 01/06/24 18:20 Range/Units White Blood Count 13.9 #H 4.4-10.8 10^3/uL Red Blood Count 4.09 4.0-5.20 10^6/uL Hemoglobin 11.6 L 12.2-16.2 g/dL Hematocrit 35.0 L 36.0-46.0 % Mean Corpuscular Volume 85.7 80.0-100.0 fL Mean Corpuscular Hemoglobin 28.4 28.0-32.0 pg Mean Corpuscular Hemoglobin Concent 33.1 32.0-36.0 g/dL Red Cell Distribution Width 15.5 H 11.8-14.3 % Platelet Count 171 140-450 10^3/uL Mean Platelet Volume 9.6 6.9-10.8 fL Neutrophils (%) (Auto) 73.2 37.0-80.0 % Lymphocytes (%) (Auto) 19.5 10.0-50.0 % Monocytes (%) (Auto) 6.2 0.0-12.0 % Eosinophils (%) (Auto) 0.7 0.0-7.0 % Basophils (%) (Auto) 0.4 0.0-2.0 % Neutrophils # (Auto) 10.1 H 1.6-8.6 10 ^3/uL Lymphocytes # (Auto) 2.7 0.4-5.4 10 ^3/uL Monocytes # (Auto) 0.9 0-1.3 10 ^3/uL Eosinophils # (Auto) 0.1 0-0.8 10 ^3/uL Basophils # (Auto) 0.1 0-0.2 10 ^3/uL Nucleated Red Blood Cells 0.0 % Prothrombin Time 11.5 9.3-11.8 sec Prothrombin Time INR 1.09 0.9-1.15 Activated Partial Thromboplast Time 26.7 24.5-34.5 SEC Magnesium Level 1.8 1.6-2.6 mg/dL Total Bilirubin 1.2 H 0.2-1.0 mg/dL Aspartate Amino Transferase (AST) 15 13-40 U/L Alanine Aminotransferase (ALT) 17 7-40 U/L Alkaline Phosphatase 116 46-116 U/L B-Type Natriuretic Peptide 276.19 0-100 pg/mL Total Protein 7.4 5.7-8.2 g/dL Albumin 3.8 3.2-4.8 g/dL Assessment Impression: Chest pain Status post pacemaker five days ago Diabetes mellitus type 2 with hyperglycemia Hypertension Overweight with a BMI of 28.1 Leukocytosis , WBC 13.9 Plan: Chest x-ray imaging report reviewed. No acute opacities. No pleural effusion or pneumothorax. BNP 276. Trop 14 BUN 16 Creatinine 0.56 ECG report reviewed. PVCs. Prolonged IL interval. QTC 460. Echo report from January 01 2024: Moderately to severe reduced left ventricular ejection fraction of 35%. Atrial fibrillation. Right ventricular systolic pressure 24 mmHg. No aortic, mitral valve, tricuspid valve, pulmonology valve are grossly normal in structure and function. Obtain Echo to evaluate for pericarditis. Ok to take of sling Obtain device interrogation. On room air. Continue ASA and Plavix. Continue statin. Pain control Avoid oversedation Accucheks, ISS DVT prophylaxis: Lovenox. Prognosis: Guarded given multiple comorbidities. Rest of plan per hospitalist and other consultants. Thank you JEWELS Luther for allowing me to participate in this patient's care. Further recommendations will depend on patient's clinical course. Please do not hesitate to contact me if you have any questions or concerns. This medical document was created using an electronic medical record system with SCRM dictation system. Although this document has been carefully reviewed, there may still be some phonetic and typographical errors. These areas are purely typographical due to imperfections of the software programs, and do not reflect any compromise in the patient's medical care. Plan discussed with: Patient, Other (RN, BRIDGE WELDER) Visit Coding Cardiology RES Date of Service: Jan 07, 2024 Billing Provider: KAILEE CARMONA MD Cardiology Common Codes: 00436-[id number] INP/OBS CARE (High) MAXIMILIAN CALLES RESIDENT Jan 07, 2024 09:17
[2024-01-07 10:39] VITALS: PULSE 82; RESP 16; O2SAT 95
[2024-01-07] MEDS: MORPHINE SULFATE INJ 2 MG/ml SYRG IV PRN (13:12)
[2024-01-07] MEDS: ONDANSETRON HCL 4 MG/2 ML VIAL IV PRN (13:12)
--- NOTE | 2024-01-07 14:29 | ECG ---
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
--- NOTE | 2024-01-07 14:30 | ECG ---
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
--- NOTE | 2024-01-07 14:46 | DVHSR ---
APPROVED REPORT EXAM: Two-dimensional and M-mode echocardiogram with Doppler and color Doppler. Blood Pressure: 139/64 mmHg INDICATION Pain Surgery/Intervention Valve Replacement: Type: TAVR Pacemaker: RISK [employer]CTORS Height: 4' 11", Weight: 138 DIMENSIONS LVDd3.1 (3.8-5.7cm)LA (2D)3.1 (1.9-4.0cm)Aortic Root (2.0-3.7cm) LVDs2.5 (2.5-4.0cm)LA (MM) (1.9-4.0cm)Aortic Cusp Exc (1.5-2.0cm) EF (%) 45.0 (55-70%)Rt. Atrium3.6 (1.9-4.0cm)Asc. Aorta cm IVSd1.1 (0.7-1.1cm)RV (D) (1.8-2.4cm) PWd1.1 (0.7-1.1cm) Mitral Valve MitralMitral Stenosis E wave1.30m/sMV Mean GR.5mmHg A wave1.60m/sMV Peak GR.11mmHg E/A ratio0.82D MVAcm2 DECEL [id number] 1/2 Jzer32va IVRTmsDop MVA2.75cm2 Aortic Valve Aortic ValveAortic Stenosis V10.70m/Yessica Mean GR.9mmHg V21.90m/Yessica Peak GR.15mmHg Tricuspid Valve TR Velocity2.50m/s [id number] Conclusion Normal left ventricular size and dimension. Mildly reduced left ventricular systolic function in shay bal fashion 45%. There is a grade 1 diastolic dysfunction. Normal right ventricular size and dimension. Normal right ventricular systolic function. Pacemaker lead is seen in position Normal biatrial size and dimension. The aortic valve appears to have bioprosthetic valve in position likely post TAVR. No significant in tra valvular gradient or regurgitation. The mitral valve appears mildly thickened there is no significant mitral valve. Tricuspid valve has mild tricuspid valve regurgitation. The pulmonary valve appears grossly normal. No pericardial effusion.
[2024-01-07] MEDS: IOHEXOL 350 MG/ML 100ML IJ ONE (15:41)
--- NOTE | 2024-01-07 15:50 | DVH ---
CT CT ANGIO CHEST CONTRAST INDICATION: better evaluate post pacemaker issues EXAM DATE: 01/07/2024 03:09 PM COMPARISON: None RADIATION DOSE: CTDIvol: 18 mGy, DLP: 610 mGy*cm PROCEDURE: Helical CT angiographic images were obtained of the chest with intravenous contrast. Sagi ttal and coronal reconstructions as well as MIPS are provided. Maximum intensity projections performe d (MIPs) were performed for CTA. ADDITIONAL IMAGES / REFORMATS: None All CT scans at this medical facility are performed using dose modulation techniques as appropriate t o a performed exam including the following: Automated exposure control was utilized; adjustment of th e MA and/or KV according to patient size; and use of iterative reconstruction technique. FINDINGS: Bones: Scattered degenerative changes are noted in the visualized osseous structures. Visualized Abdomen: Unremarkable. Chest Wall: Normal. Soft tissues: Normal. Mediastinum: Normal. Heart: Normal. Vessels: No filling defects in the visualized pulmonary arteries including the segmental and subsegme ntal pulmonary arteries. Lymph Nodes: Normal. Pleura: Normal. Airways: Normal. Lung: Mild bibasilar atelectasis. Other: Left chest wall pacemaker with leads which appear intact. IMPRESSION: No pulmonary embolism in the visualized pulmonary arteries including the segmental and subsegmental p ulmonary arteries. Left chest wall pacemaker with leads which appear intact.
--- NOTE | 2024-01-07 18:56 | DVHPN2 ---
Subjective 88-year-old female who just underwent a pacemaker placement 5 days ago here for sick sinus syndrome She has a history of TAVR previously She has a history history of hypertension and type 2 diabetes and dyslipidemia She came because of chest pain that started last night, describes it as a pain right at the left nipple, she describes the pain as pulsating sharp with no radiation and severe Changes from previous H/P or p: Changes Objective Vitals Vital Signs Date Time Temp Pulse Resp B/P (MAP) Pulse Ox O2 Delivery O2 Flow Rate FiO2 01/07/24 16:00 65 01/07/24 16:00 98.0 19 117/54 (75) 95 98.0 01/07/24 10:39 Room Air* 0 21 General Appearance: Alert, Oriented X3, Cooperative, No acute distress Lungs: Clear to auscultation, Normal air movement Cardiovascular: Regular rate, Normal S1, Normal S2 Abdomen: Normal bowel sounds, Soft, No tenderness Extremities: No edema Medications Current Medications Medications Dose Ordered Sig/Marcelo Route Start Time Stop Time Status Last Admin Dose Admin Aspirin 162 mg DAILY PO 01/07/24 10:00 01/07/24 08:39 162 MG Atorvastatin Calcium 40 mg HS PO 01/06/24 22:00 01/07/24 01:02 40 MG Clopidogrel Bisulfate 75 mg DAILY PO 01/07/24 10:00 01/07/24 08:39 75 MG Metoprolol Tartrate 50 mg BID PO 01/06/24 22:00 01/07/24 08:40 50 MG Diagnostic Test (Pha) 1 strip ACHS 01/06/24 22:00 01/07/24 17:29 1 STRIP Insulin Human Regular ACHS SC 01/06/24 22:00 01/07/24 17:28 2 UNITS Dextrose 50 ml UD PRN IV 01/06/24 22:00 Ondansetron HCl 4 mg Q4HP PRN IV 01/06/24 22:00 01/07/24 13:12 4 MG Enoxaparin Sodium 40 mg DAILY SC 01/07/24 10:00 01/07/24 08:40 40 MG Acetaminophen 650 mg Q6HP PRN PO 01/06/24 22:00 01/07/24 04:56 650 MG Nitroglycerin 0.4 mg Q5MINP PRN SL 01/06/24 22:00 Morphine Sulfate 2 mg Q30M PRN IV 01/06/24 22:00 Acetaminophen/ Hydrocodone Bitart 1 tab Q4HPRN PRN PO 01/07/24 08:15 01/07/24 08:39 1 TAB Morphine Sulfate 2 mg Q4HPRN PRN IV 01/07/24 08:15 01/07/24 13:12 2 MG Laboratory Results Laboratory Tests 01/06/24 18:20 01/07/24 04:17 Chemistry Test 01/07/24 04:17 Calcium Level 9.3 mg/dL (8.7-10.4) Urinalysis Test 01/07/24 01:16 Urine Color Light-yellow (Yellow) Urine Clarity Clear (Clear) Urine pH 5.0 (5.0-9.0) Urine Specific [place] 1.038 (1.001-1.035) Urine Protein Negative (Negative) Urine Ketones 1+ (Negative) H Urine Blood Negative /uL (Negative) Urine Nitrite Negative (Negative) Urine Bilirubin Negative (Negative) Urine Urobilinogen Normal mg/dL (Negative) Urine Leukocyte Esterase Negative /uL (Negative) Urine RBC 2 /hpf (0 - 4) Urine WBC 3 /hpf (0 - 5) Urine Squamous Epithelial Cells Mod /hpf (<5) Urine Bacteria None seen /hpf (None Seen) Urine Mucus Few (None Seen) Urine Glucose 4+ mg/dL (Normal) H Assessment/Plan Assessment/Plan Chest pain Sick sinus syndrome with Recent pacemaker placement 5 days ago History of TAVR Hypertension Type 2 diabetes Mildly reduced ejection fraction at 45% Plan Troponins are negative Chest x-ray is negative Echocardiogram showed ejection fraction of 45% Cardiology consult was done Interrogation of the pacemaker shows normal function CTA of the chest was negative for pulmonary embolism, no pneumothorax Observe the patient on telemetry overnight DVT prophylaxis with Lovenox Pain control Avoid over sedation Electrolytes are normal Discussed with the family at the bedside Full code Advance directives discussed with the patient and family for more than 20 minutes Not stable for transfer Plan discussed with: Patient, Spouse Date of Service: Jan 07, 2024 Billing Provider: HERNANDO DICKENS MD Common Visit Codes: [id number] INP/OBS CARE(HIGH) Secondary Visit Codes: [id number] CARE PLAN 30 MINUTES HERNANDO DICKENS MD Jan 07, 2024 18:55
[2024-01-07 20:30] VITALS: PULSE 80; RESP 15; O2SAT 96
[2024-01-07 22:55] VITALS: BP 145/61; PULSE 64; RESP 18; TEMP 97.7; O2SAT 100
[2024-01-07 23:22] VITALS: BP 145/61; PULSE 64; RESP 18; TEMP 97.7; O2SAT 100
[2024-01-08] VITALS (7 sets, daily range): BP systolic 110–133; BP diastolic 48–62; PULSE 59–75; RESP 17; TEMP 97.5–98.1; O2SAT 95–100
--- NOTE | 2024-01-08 15:18 | DVHDS2 ---
Discharge Summary Date of Admission Jan 06, 2024 at 21:56 Date of Discharge: Jan 08, 2024 Labs/Diagnostic Data: Laboratory Results Test 01/08/24 11:32 01/07/24 04:17 01/07/24 01:16 01/06/24 19:12 POC Glucose 125 mg/dl (70-106) Sodium Level 140 mmol/L (136-145) Potassium Level 3.7 mmol/L (3.5-5.1) Chloride Level 106 mmol/L (98-107) Carbon Dioxide Level 25 mmol/L (20-31) Anion Gap 9 (5-15) Blood Urea Nitrogen 16 mg/dL (9-23) Creatinine 0.56 mg/dL (0.550-1.02) Glomerular Filtration Rate Calc 88 mL/min (>90) BUN/Creatinine Ratio 28.6 (10.0-20.0) Serum Glucose 106 mg/dL (74-106) Calcium Level 9.3 mg/dL (8.7-10.4) Urine Color Light-yellow (Yellow) Urine Clarity Clear (Clear) Urine pH 5.0 (5.0-9.0) Urine Specific [place] 1.038 (1.001-1.035) Urine Protein Negative (Negative) Urine Ketones 1+ (Negative) Urine Blood Negative /uL (Negative) Urine Nitrite Negative (Negative) Urine Bilirubin Negative (Negative) Urine Urobilinogen Normal mg/dL (Negative) Urine Leukocyte Esterase Negative /uL (Negative) Urine RBC 2 /hpf (0 - 4) Urine WBC 3 /hpf (0 - 5) Urine Squamous Epithelial Cells Mod /hpf (<5) Urine Bacteria None seen /hpf (None Seen) Urine Mucus Few (None Seen) Urine Glucose 4+ mg/dL (Normal) Troponin I High Sensitivity 14 ng/L (</=34) Test 01/06/24 18:20 White Blood Count 13.9 10^3/uL (4.4-10.8) Red Blood Count 4.09 10^6/uL (4.0-5.20) Hemoglobin 11.6 g/dL (12.2-16.2) Hematocrit 35.0 % (36.0-46.0) Mean Corpuscular Volume 85.7 fL (80.0-100.0) Mean Corpuscular Hemoglobin 28.4 pg (28.0-32.0) Mean Corpuscular Hemoglobin Concent 33.1 g/dL (32.0-36.0) Red Cell Distribution Width 15.5 % (11.8-14.3) Platelet Count 171 10^3/uL (140-450) Mean Platelet Volume 9.6 fL (6.9-10.8) Neutrophils (%) (Auto) 73.2 % (37.0-80.0) Lymphocytes (%) (Auto) 19.5 % (10.0-50.0) Monocytes (%) (Auto) 6.2 % (0.0-12.0) Eosinophils (%) (Auto) 0.7 % (0.0-7.0) Basophils (%) (Auto) 0.4 % (0.0-2.0) Neutrophils # (Auto) 10.1 10 ^3/uL (1.6-8.6) Lymphocytes # (Auto) 2.7 10 ^3/uL (0.4-5.4) Monocytes # (Auto) 0.9 10 ^3/uL (0-1.3) Eosinophils # (Auto) 0.1 10 ^3/uL (0-0.8) Basophils # (Auto) 0.1 10 ^3/uL (0-0.2) Nucleated Red Blood Cells 0.0 % Prothrombin Time 11.5 sec (9.3-11.8) Prothrombin Time INR 1.09 (0.9-1.15) Activated Partial Thromboplast Time 26.7 SEC (24.5-34.5) Magnesium Level 1.8 mg/dL (1.6-2.6) Total Bilirubin 1.2 mg/dL (0.2-1.0) Aspartate Amino Transferase (AST) 15 U/L (13-40) Alanine Aminotransferase (ALT) 17 U/L (7-40) Alkaline Phosphatase 116 U/L (46-116) B-Type Natriuretic Peptide 276.19 pg/mL (0-100) Total Protein 7.4 g/dL (5.7-8.2) Albumin 3.8 g/dL (3.2-4.8) Other Laboratory Tests 01/07/24 04:17 01/06/24 18:20 Brief Hx & Hospital Course: Diagnoses: Sick sinus syndrome with Recent pacemaker placement 5 days ago History of TAVR Hypertension Type 2 diabetes Mildly reduced ejection fraction at 45% 88-year-old female who was admitted for chest pain after she underwent a pacemaker placement 5 days earlier Evaluation here was negative Troponins are negative Chest x-ray is normal Echocardiogram was negative except for a ejection fraction of 45% CTA of the chest was negative for pulmonary embolism Cardiology saw the patient and recommended no further interventions Her pain is better now It is intermittent She can be discharged home to take Tylenol as needed She takes aspirin and Plavix at home which he will continue Resume other home medications Follow up with the cardiology clinic in 1 week for pacemaker check She also had some erythema in the groin which she has been using nystatin powder for it which she should continue Follow up with [place] drum straightener as soon as possible for her aortic valve replacement follow up and with her PCP as soon as possible for general follow up Condition at Discharge: Stable Final Diagnosis/Problems List Chest pain Sick sinus syndrome with Recent pacemaker placement 5 days ago History of TAVR Hypertension Type 2 diabetes Mildly reduced ejection fraction at 45% Discharge Disposition: Home SNF Discharge Will this Physician continue t: No Discharge Instruct/Medications Diet: Cardiac 2g Na,low cholest Activity: No Restrictions, As Tolerated Follow Up/Referral: Dr. Miguel 1 week for pacemaker follow up Medications: Same home medications Discharge Statement: "Patient was advised to return to the ER or call 911 if any headaches, dizziness, shortness of breath, chest pain, abdominal pain, bleeding, fevers, or worsening of medical condition. Patient was counseled about treatment plan, medications, possible side effects, patientverbalized understanding. All questions were answered to the best of my ability. This discharge took greater then 30 minutes in planning, reviewing documentation, counseling the patient, and discussing with other team members." ASSESSMENT ASSESSMENT Assessment Chest pain Date of Service: Jan 08, 2024 Billing Provider: HERNANDO DICKENS MD Common Visit Codes: 50364-UIT/OBS DISCH DAY >30min HERNANDO DICKENS MD Jan 08, 2024 15:18
[2024-01-08] MEDS: LACTULOSE 20Gm/30ML SOLN PO ONE (17:03)
[2024-01-08] MEDS: NYSTATIN TOPICAL POWDER 15GM TOP ONE (17:04)
== END 2024-01-08 17:07 | disposition home or self-care (01) | DRG 309 ==
LOC: ER 18:12 → TELE 21:56 → TELE-WESTW 01-07 22:55
PROVIDERS: ADMIT Nurse Practitioner; ATTEND Internal Medicine Geriatric Medicine
DX: I49.5 Sick sinus syndrome (principal); I50.42 Chronic combined systolic (congestive) and diastolic (congestive) heart failure; I11.0 Hypertensive heart disease with heart failure; E66.3 Overweight; D72.829 Elevated white blood cell count, unspecified; R00.1 Bradycardia, unspecified; E78.5 Hyperlipidemia, unspecified; E11.65 Type 2 diabetes mellitus with hyperglycemia; Z95.2 Presence of prosthetic heart valve; Z68.28 Body mass index [BMI] 28.0-28.9, adult; Z95.0 Presence of cardiac pacemaker; Z79.02 Long term (current) use of antithrombotics/antiplatelets; Z79.82 Long term (current) use of aspirin
CPT/HCPCS: 36415; 71045; 71275; 80048; 80053; 81001; 82962; 83735; 83880; 84484; 85025; 85610; 85730; 87081; 93005; 93306; 97163; 99291; G0378; J1815; J2405

== ENCOUNTER 2024-10-25 10:14 | Emergency (ER) | payer OTHER ==
[~2024-10-25] VITALS: Ht 149.9 cm; Wt 65.0 kg
--- NOTE | 2024-10-25 10:45 | ED.PDOC ---
History of Present Illness HPI Comments 89-year-old female with a history of hypertension, diabetes, sick sinus syndrome status post pacemaker insertion, status post TAVR brought in by family for evaluation of a headache for the past 3 weeks, associated with fatigue, transient blurred vision and feeling off balance this morning. She states this morning she was unable to walk due to feeling off balance. She denies any weakness or vomiting. She states she has had nausea. Over the past week she has been on prednisone for the headache. Patient states this caused her blood glucose to increase, so prednisone was discontinued. Denies taking any pain medication today. Chief Complaint: Hyperglycemia Time Seen by MD: 10:16 Primary Care Provider: ASHISH Reviewed Notes: Medications, Allergies Allergies: Coded Allergies: NO KNOWN ALLERGIES (Unverified , 01/01/24) Home Meds Active Scripts Doxycycline (Monohydrate) (Doxycycline) 100 Mg Cap, 100 MG PO BID for 2 Days, #4 CAP Prov:MARIBEL BRANNON OXYGEN TANK FILLER 01/04/24 Metoprolol Tartrate (LOPRESSOR TABLET) 50 Mg Tb, 1 TAB PO BID for 30 Days, #60 TAB 5 Refills Prov:MARIBEL BRANNON OXYGEN TANK FILLER 01/04/24 Reported Medications Nystatin (Nystatin) 1 Pow Pow, 1 POW XX TID for LEFT GROIN, POW 01/02/24 Acetaminophen (Tylenol Extra Strength) 500 Mg Tab, 500 MG PO, TAB 01/02/24 Aspirin (Aspir-Low) 81 Mg Tab, 81 MG PO DAILY for 30 Days, MG 01/02/24 Omeprazole (Gnp Omeprazole) 20 Mg Tab, 20 MG PO DAILY, TAB 01/02/24 Empagliflozin (Jardiance) 25 Mg Tab, 25 MG PO, TAB 01/02/24 Clopidogrel Bisulfate (CLOPIDOGREL) 75 Mg Tab, 75 MG PO DAILY, TAB 01/02/24 Atorvastatin Calcium (ATORVASTATIN CALCIUM) 40 Mg Tab, 40 MG PO DAILY, TAB 01/02/24 Information Source: Patient, Spouse Mode of Arrival: Wheelchair Past Medical History PAST MEDICAL HISTORY: DM, High Lipids, HTN Surgical History: Hysterectomy, Pacemaker Surgical History (Other): TAVR 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: No Pertinent 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 Family History Family History: No family hx of Cancer, No family hx of DM, No family hx of HTN, No family hx ofKidney gigi, No family hx of Liver gigi, No family hx of Lung gigi, No family hx of Stroke, Family hx of heart gigi Social History Smoker: Non-Smoker Alcohol: Denies ETOH Use Drugs: Denies Drug Use Lives In: Home All Other Systems: Reviewed and Negative (Comprehensive systems review obtained and negative except for what is stated in the HPI.) Physical Exam General Appearance: No Apparent Distress HEENT: Other (Pupils and face symmetric. Moist mucous membranes.) Neck: Full Range of Motion, Normal Inspection Respiratory: Lungs Clear, No Accessory Muscle Use, No Respiratory Distress, Normal Breath Sounds Cardiovascular: No Edema, No JVD, Regular Rate/Rhythm Breast Exam: Deferred Gastrointestinal: Non Tender, Soft Genitalia: Deferred Pelvic: Deferred Rectal: Deferred Extremities: Normal inspection, Normal range of motion, Non-tender, No pedal edema Neurologic: Alert (Oriented x4), bale tie machine operator II-XII nml as Tested, Normal Affect, Normal Mood, Other (Moves all extremities without gross focal deficit.) Cerebellar Function: NOT DONE Reflexes: NOT DONE Skin: Dry, Normal Color, Warm Lymphatic: NOT DONE Was a procedure done? Was a procedure done?: No Differential Dx Considerations may include: Hyperglycemia, hyperglycemic hyperosmolar state, vertigo, CVA, TIA, arrhythmia, electrolyte abnormality, among others X-Ray, Labs, Meds, VS Vital Signs Date Time Temp Pulse Resp B/P (MAP) Pulse Ox O2 Delivery O2 Flow Rate FiO2 10/25/24 13:12 75 10/25/24 11:57 71 18 126/57 (80) 96 10/25/24 10:16 97.8 75 15 161/92 98 97.8 Lab Test 10/25/24 17:21 10/25/24 15:27 10/25/24 13:36 10/25/24 11:15 Range/Units Plasma/Serum Blood Alcohol < 3.0 <10 mg/dL Troponin I High Sensitivity 10 12 14 </=34 ng/L Lactic Acid Level 1.8 2.3 *H 0.4-2.0 mmol/L White Blood Count 12.7 H 4.4-10.8 10^3/uL Red Blood Count 4.97 4.0-5.20 10^6/uL Hemoglobin 13.7 12.2-16.2 g/dL Hematocrit 40.7 36.0-46.0 % Mean Corpuscular Volume 81.9 80.0-100.0 fL Mean Corpuscular Hemoglobin 27.6 L 28.0-32.0 pg Mean Corpuscular Hemoglobin Concent 33.7 32.0-36.0 g/dL Red Cell Distribution Width 15.8 H 11.8-14.3 % Platelet Count 167 140-450 10^3/uL Mean Platelet Volume 9.5 6.9-10.8 fL Neutrophils (%) (Auto) 75.6 37.0-80.0 % Lymphocytes (%) (Auto) 17.0 10.0-50.0 % Monocytes (%) (Auto) 6.5 0.0-12.0 % Eosinophils (%) (Auto) 0.5 0.0-7.0 % Basophils (%) (Auto) 0.4 0.0-2.0 % Neutrophils # (Auto) 9.6 H 1.6-8.6 10 ^3/uL Lymphocytes # (Auto) 2.2 0.4-5.4 10 ^3/uL Monocytes # (Auto) 0.8 0-1.3 10 ^3/uL Eosinophils # (Auto) 0.1 0-0.8 10 ^3/uL Basophils # (Auto) 0.1 0-0.2 10 ^3/uL Nucleated Red Blood Cells 0.1 % Sodium Level 132 L 136-145 mmol/L Potassium Level 4.0 3.5-5.1 mmol/L Chloride Level 99 98-107 mmol/L Carbon Dioxide Level 24 20-31 mmol/L Anion Gap 9 5-15 Blood Urea Nitrogen 25 H 9-23 mg/dL Creatinine 0.98 0.550-1.02 mg/dL Glomerular Filtration Rate Calc 56 >90 mL/min BUN/Creatinine Ratio 25.5 H 10.0-20.0 Serum Glucose 229 H 74-106 mg/dL Calcium Level 8.6 L 8.7-10.4 mg/dL B-Type Natriuretic Peptide 137.32 0-100 pg/mL Test 10/25/24 10:40 Range/Units Urine Color Yellow Yellow Urine Clarity Clear Clear Urine pH 6.0 5.0-9.0 Urine Specific [place] 1.016 1.001-1.035 Urine Protein Negative Negative Urine Ketones Negative Negative Urine Blood Negative Negative /uL Urine Nitrite Negative Negative Urine Bilirubin Negative Negative Urine Urobilinogen Normal Negative mg/dL Urine Leukocyte Esterase 1+ Negative /uL Urine RBC 2 0 - 4 /hpf Urine Microscopic WBC 4 0-5 /HPF Urine Squamous Epithelial Cells Few <5 /hpf Urine Bacteria None seen None Seen /hpf Urine Glucose 3+ H Normal mg/dL Current Medications Medications (Trade) Dose Ordered Sig/Marcelo Route Start Time Stop Time Status Last Admin Acetaminophen/ Hydrocodone Bitart ([place] 5/325MG Tab) 1 tab ONCE ONCE PO 10/25/24 10:45 10/25/24 10:50 DC 10/25/24 12:17 Meclizine HCl (Antivert Tablet) 50 mg ONCE ONCE PO 10/25/24 10:45 10/25/24 10:50 DC 10/25/24 12:17 Ondansetron HCl (Zofran Po) 4 mg ONCE ONCE PO 10/25/24 10:45 10/25/24 10:50 DC 10/25/24 12:17 Sodium Chloride 1,000 ml @ 1,000 mls/hr Q1H ONCE IV 10/25/24 12:30 10/25/24 13:29 DC 10/25/24 12:40 PROCEDURE(s): HWOCT - HEAD WITHOUT CONTRAST REASON: headache, off balance ORDER NUMBER(s): [id number], ACCESSION NUMBER(s): [id number] EXAM: CT HEAD WITHOUT CONTRAST INDICATION: headache, off balance TECHNIQUE: CT of the head without intravenous contrast. Coronal and sagittal reformatted images are submitted. Radiation Dose : 1. Head: CT Dose: CTDI volume is 49.71 mGy. Dose-length product is 795.41 mGy*cm The dose indicators for CT are the volume Computed Tomography (CT) Dose Index (CTDIvol) and the Dose Length Product (DLP), and are measured in units of mGy and mGy-cm, respectively. These indicators are not patient dose, but values generated from the CT scanner acquisition factors. The report includes radiation exposure data for exposures received during this examination. All CT scans at this medical facility are performed using dose modulation techniques as appropriate to a performed exam including the following: Automated exposure control was utilized; adjustment of the MA and/or KV according to patient size; and use of iterative reconstruction technique. COMPARISON: None FINDINGS: There is no evidence of acute intracranial hemorrhage, extra-axial collection, mass effect, midline shift, herniation or hydrocephalus. The ventricles, sulci and cisterns are age appropriate. The colon-white differentiation is intact. The visualized paranasal sinuses and mastoid air cells are clear. No depressed calvarial fracture. The surrounding soft tissues are unremarkable. IMPRESSION: 1. No evidence of acute intracranial abnormality. EDURE(s): CXRP - CHEST PORTABLE REASON: hyperglycemia, dizzy ORDER NUMBER(s): [id number], ACCESSION NUMBER(s): [id number] XY CHEST PORTABLE, HISTORY: hyperglycemia, dizzy COMPARISON: CT CT ANGIO CHEST CONTRAST on DOS: 01/07/24, XY CHEST PORTABLE on DOS: 01/06/24, XY CHEST PORTABLE on DOS: 01/03/[address] ANGIO CHEST CONTRAST on DOS: 01/07/24, XY CHEST PORTABLE on DOS: 01/06/24, XY CHEST PORTABLE on DOS: 01/03/24 TECHNICAL DATA: 1 view of the chest was obtained. FINDINGS: Lines and tubes: A cardiac pacer is noted. Cardiomediastinal silhouette: normal Pulmonary vasculature: normal Lung expansion: low Lung airspace: normal Lung interstitium: normal Pleura: normal Pneumothorax: no Bones: Unremarkable Other: no IMPRESSION: No acute intrathoracic abnormality. EDURE(s): [place] - ANGIO HEAD/Neck REASON: headache, off balance ORDER NUMBER(s): [id number], ACCESSION NUMBER(s): [id number] CLINICAL HISTORY: headache, off balance TECHNIQUE: CT angiogram of the head and neck was performed without and with intravenous contrast. 3D MIP reconstructed images were created and archived on the PACS system. This exam was performed according to our departmental dose optimization program. Up-to-date CT equipment and radiation dose reduction techniques are utilized as appropriate. CTDI 22.3 DLP 756.4 COMPARISON: None FINDINGS: CTA NECK: The common carotid, internal carotid, and vertebral arteries are patent with no evidence for high grade narrowing, occlusion, and dissection. There is no significant narrowing at the carotid bulbs per NASCET criteria. CTA HEAD: The anterior and posterior intracranial circulations are intact with no evidence for occlusion or aneurysm. There is moderate to hydrate narrowing at the P2 segment of the right CHRISTMAS BELL RINGER. There is moderate to hydrate narrowing at the proximal Posterior M2 segment of the left MCA. IMPRESSION: No acute CTA abnormality of the major head and neck arterial vasculature. Moderate to high grade narrowing narrowing at the P2 segment of the right CHRISTMAS BELL RINGER and proximal posterior M2 segment of the left MCA. X-Ray, Labs, Meds, VS Comment 89-year-old female with a history of hypertension, diabetes, dyslipidemia, sick sinus syndrome status post pacemaker insertion and TAVR complaining of headache and feeling off balance, causing her to be unable to ambulate without assistance. Vitals remarkable for BP 161/92 Exam unremarkable Rhythm strip independently interpreted by me: Sinus rhythm, rate 75, no ectopy. CT head and chest x-ray unremarkable Labs remarkable for WBC 12.7, sodium 132, BUN 25, glucose 229, lactate 2.3. Troponin negative. BNP 137.32. UA 4 WBCs, 1+ leukocyte esterase, 3+ glucose Patient treated with the following in the ED: Meclizine 50 mg p.o., Zofran ODT 4 mg p.o., [place] 5/325 mg p.o., Rocephin 1 g IV, aspirin 325 mg p.o., plavix 75 mg po On re-evaluation, patient notes headache and nausea have improved. Vitals were stable. No new neurologic changes. Case discussed with Dr. Hernandez at [facility], who will arrange for the patient to be transferred to [facility]. Authorization [id number] Hernandez at [facility], who informed me the patient has a bed at [facility], however their hospitalist would not accept the patient without a CT angio head and neck and neuro consultation here. These studies were ordered. CTA head and neck results reviewed: IMPRESSION: No acute CTA abnormality of the major head and neck arterial vasculature. Moderate to high grade narrowing narrowing at the P2 segment of the right CHRISTMAS BELL RINGER and proximal posterior M2 segment of the left MCA. Case discussed with Dr. Tomlinson, [facility] neurologist. He recommended p.o. aspirin and Plavix, no thrombolytics, stable for transfer at this time for admission at [facility] for brain MRI and further neuro evaluation. Time of 1ST Reevaluation: 11:36 Reevaluation 1ST: Improved Patient Education/Counseling: Diagnosis, Treatment, Prognosis Family Education/Counseling: Diagnosis, Treatment, Prognosis SEPSIS Sepsis Screen Date sepsis recognized/suspect: Oct 25, 2024 Time Sepsis recognized/suspect: 102 Recent Procedure: No On Antibiotic Therapy: No Respiratory Rate >20: No Heart Rate >90: No Temp<36 C (96.8 F) or >38.3 C: No SBP <90 or MAP <65 mmHG: No New Acute Mental Status Change: No Is the patient on CPAP, BIPAP,: No SEPSIS EXCLUSION NOTE: Sepsis Exclusion Note: Patient presents with SIRS criteria, but the SIRS response is attributed to [dehydration ], not a suspected infection. Sepsis bundle is not initiated at this time, due to this reason. Further management will focus on the treatment of the above condition (s). Physician Orders Chest Portable (10/25/24 10:45) Electrocardigram (10/25/24 10:45) Head Without Contrast (10/25/24 10:45) Blood Culture (10/25/24 10:45) Imaging Transfer Request (10/25/24 16:12) User Experience Designer (10/25/24 16:15) Angio Head/Neck (10/25/24 16:15) [place] [facility] Consult (10/25/24 18:09) Vital Signs Date Time Temp Pulse Resp B/P (MAP) Pulse Ox O2 Delivery O2 Flow Rate FiO2 10/25/24 13:12 75 10/25/24 11:57 71 18 126/57 (80) 96 10/25/24 10:16 97.8 75 15 161/92 98 97.8 Laboratory Tests Test 10/25/24 11:15 10/25/24 13:36 Lactic Acid Level 2.3 mmol/L (0.4-2.0) *H 1.8 mmol/L (0.4-2.0) White Blood Count 12.7 10^3/uL (4.4-10.8) H Medications Medications Dose Ordered Sig/Marcelo Route Start Time Stop Time Status Last Admin Dose Admin Acetaminophen/ Hydrocodone Bitart 1 tab ONCE ONCE PO 10/25/24 10:45 10/25/24 10:50 DC 10/25/24 12:17 Meclizine HCl 50 mg ONCE ONCE PO 10/25/24 10:45 10/25/24 10:50 DC 10/25/24 12:17 Ondansetron HCl 4 mg ONCE ONCE PO 10/25/24 10:45 10/25/24 10:50 DC 10/25/24 12:17 Sodium Chloride 1,000 ml @ 1,000 mls/hr Q1H ONCE IV 10/25/24 12:30 10/25/24 13:29 DC 10/25/24 12:40 Departure 1 Departure Time of Disposition: 12:00 Impression: Primary Impression: Gait instability Additional Impressions: Elevated lactic acid level Headache Qualified Codes: R51.9 - Headache, unspecified Disposition: 02 [facility]ORT TERM HOSPITAL Admit to: Tele Condition: Guarded Critical Care Note Critical Care Time?: No Stability Stability form required: No Heart Score Heart Score: Heart Score Response (Comments) Value History N/A 0 EKG N/A 0 Age N/A 0 Risk Factors N/A 0 Troponin N/A 0 Total 0 I personally scribed for BELL CASTRO MD ([email or web address]) on 10/25/24 at 11:02. Electronically submitted by Laureano Del Real ([facility] BELL CASTRO MD Oct 25, 2024 10:45
--- NOTE | 2024-10-25 11:15 | DVH ---
XY CHEST PORTABLE, HISTORY: hyperglycemia, dizzy COMPARISON: CT CT ANGIO CHEST CONTRAST on DOS: 01/07/24, XY CHEST PORTABLE on DOS: 01/06/24, XY CHEST PORTABLE on DOS: 01/03/[address] ANGIO CHEST CONTRAST on DOS: 01/07/24, XY CHEST PORTABLE on DOS: 01/06/24, XY CHEST PORTABLE on DOS: 01/03/24 TECHNICAL DATA: 1 view of the chest was obtained. FINDINGS: Lines and tubes: A cardiac pacer is noted. Cardiomediastinal silhouette: normal Pulmonary vasculature: normal Lung expansion: low Lung airspace: normal Lung interstitium: normal Pleura: normal Pneumothorax: no Bones: Unremarkable Other: no IMPRESSION: No acute intrathoracic abnormality.
--- NOTE | 2024-10-25 11:28 | DVH ---
EXAM: CT HEAD WITHOUT CONTRAST INDICATION: headache, off balance TECHNIQUE: CT of the head without intravenous contrast. Coronal and sagittal reformatted images are s ubmitted. Radiation Dose : 1. Head: CT Dose: CTDI volume is 49.71 mGy. Dose-length product is 795.41 mGy*cm The dose indicators for CT are the volume Computed Tomography (CT) Dose Index (CTDIvol) and the Dose Length Product (DLP), and are measured in units of mGy and mGy-cm, respectively. These indicators are not patient dose, but values generated from the CT scanner acquisition factors. The report includes radiation exposure data for exposures received during this examination. All CT scans at this medical facility are performed using dose modulation techniques as appropriate to a performed exam including the following: Automated exposure control was utilized; adjustment of the MA and/or KV according to patient size; and use of iterative reconstruction technique. COMPARISON: None FINDINGS: There is no evidence of acute intracranial hemorrhage, extra-axial collection, mass effect, midline s hift, herniation or hydrocephalus. The ventricles, sulci and cisterns are age appropriate. The colon-white differentiation is intact. The visualized paranasal sinuses and mastoid air cells are clear. No depressed calvarial fracture. The surrounding soft tissues are unremarkable. IMPRESSION: 1. No evidence of acute intracranial abnormality.
[2024-10-25 11:35] LABS: Hematocrit 40.7 % (36.0-46.0); Hemoglobin 13.7 g/dL (12.2-16.2); Mean Corpuscular Hemoglobin 27.6 pg (28.0-32.0); Mean Corpuscular Volume 81.9 fL (80.0-100.0); Nucleated Red Blood Cells % 0.1 %
[2024-10-25 11:39] LABS: Chloride 99 mmol/L (98-107); Potassium 4.0 mmol/L (3.5-5.1)
[2024-10-25 11:40] LABS: Anion Gap 9 (5-15); Carbon Dioxide 24 mmol/L (20-31)
[2024-10-25 11:42] LABS: Calcium 8.6 mg/dL (8.7-10.4); Sodium 132 mmol/L (136-145)
[2024-10-25 11:45] LABS: BUN/Creatinine Ratio 25.5 (10.0-20.0)
[2024-10-25 11:49] LABS: Blood Urea Nitrogen 25 mg/dL (9-23); Glucose 229 mg/dL (74-106)
[2024-10-25 11:51] LABS: Lactic Acid w/Reflex 2.3 mmol/L (0.4-2.0)
[2024-10-25 12:12] LABS: Urine Protein, UAD Negative (Negative)
[2024-10-25] MEDS: HYDROcodone-ACET 5/325MG TAB PO ONE (12:17)
[2024-10-25] MEDS: ONDANSETRON ODT 4 MG TAB PO ONE (12:17)
[2024-10-25] MEDS: MECLIZINE HCL 25 MG TAB PO ONE (12:17)
[2024-10-25] MEDS: SODIUM CHLORIDE 0.9% 1,000 ML IV ONE (12:40)
--- NOTE | 2024-10-25 17:43 | DVH ---
CLINICAL HISTORY: headache, off balance TECHNIQUE: CT angiogram of the head and neck was performed without and with intravenous contrast. 3D MIP reconstructed images were created and archived on the PACS system. This exam was performed accord ing to our departmental dose optimization program. Up-to-date CT equipment and radiation dose reducti on techniques are utilized as appropriate. CTDI 22.3 DLP 756.4 COMPARISON: None FINDINGS: CTA NECK: The common carotid, internal carotid, and vertebral arteries are patent with no evidence for high gra de narrowing, occlusion, and dissection. There is no significant narrowing at the carotid bulbs per N ASCET criteria. CTA HEAD: The anterior and posterior intracranial circulations are intact with no evidence for occlusion or ane urysm. There is moderate to hydrate narrowing at the P2 segment of the right LEAD SALES CONSULTANT. There is moderate to hydra te narrowing at the proximal Posterior M2 segment of the left MCA. IMPRESSION: No acute CTA abnormality of the major head and neck arterial vasculature. Moderate to high grade narrowing narrowing at the P2 segment of the right LEAD SALES CONSULTANT and proximal posterior M2 segment of the left MCA.
[2024-10-25] MEDS: CLOPIDOGREL BISULFATE 75 MG TAB PO ONE (20:58)
[2024-10-25 21:01] VITALS: BP 152/72; PULSE 68; RESP 16; TEMP 97.8
[2024-10-25 21:09] VITALS: O2SAT 97
--- NOTE | 2024-10-26 00:26 | ECG ---
[facility] Test Date: 2024-10-25 Test Time: 13:12:12 Pat Name: LEEANN WYATT Department: [facility] ED Patient ID: [facility]-[id number] Room: Gender: F Human Resource Statistician: nathaniel : 1935 Requested By: BELL VERNON Order Number: [id number] Reading MD: Measurements Intervals [place] Rate: 75 P: 0 [place]: 217 QRS: -26 QRSD: 78 T: 68 QT: 379 QTc: 424 Interpretive Statements Atrial-paced complexes Inferior infarct, old Anterior infarct, old Please click the below link to view image of tracing.
== END 2024-10-25 21:20 | disposition short-term general hospital (02) ==
LOC: ER 10:14
DX: E87.20 Acidosis, unspecified (principal); R26.2 Difficulty in walking, not elsewhere classified; R51.9 Headache, unspecified; I10 Essential (primary) hypertension; E78.5 Hyperlipidemia, unspecified; Z79.82 Long term (current) use of aspirin; Z79.899 Other long term (current) drug therapy; Z90.710 Acquired absence of both cervix and uterus; Z95.0 Presence of cardiac pacemaker; Z95.2 Presence of prosthetic heart valve
CPT/HCPCS: 36415; 70450; 70496; 70498; 71045; 80048; 80320; 81001; 82947; 83605; 83880; 84484; 85025; 87040; 87086; 93005; 96360; 99285; J7030; J8597; Q0162

== ENCOUNTER 2025-01-09 08:48 | Emergency (ER) | payer OTHER ==
[~2025-01-09] VITALS: Ht 144.8 cm; Wt 66.3 kg
--- NOTE | 2025-01-09 09:07 | ED.PDOC ---
HPI (NEURO) HPI Comments 89 y/o F, with PMHx of DM II, HTN, HLD, and TIA's presents to the ED for CC of generalized weakness. Per patient's daughter, patient woke up this morning (01/09/25) c/o generalized weakness, vision loss, and slurred speech lasting only a few minutes. Per patient's daughter, patient had a slight facial droop. 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 Patient denies nausea, vomiting, headache, disorientation, or confusion. Chief Complaint: General Weakness Time Seen by MD: 09:20 Primary Care Provider: ASHISH Raphael Notes: Nurses Notes, Medications, Allergies Information Source: Patient, Relative (Child) Mode of Arrival: Wheelchair Severity: Moderate Headache Severity: None Timing: Minutes Duration: Minutes Prehospital treatment: None Weakness Location: Generalized Onset: At rest Circumstances: Spontaneous Symptoms: Weakness, Vision loss, Slurred speech Before: Normal During: Awake After: Normal Mentation History of: TIA Modifying factors: Nothing Associated Signs and Symptoms: None Past Medical History PAST MEDICAL HISTORY: DM, High Lipids, HTN, TIA Surgical History: Hysterectomy, Pacemaker 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 Family History Family History: No family hx of Cancer, No family hx of DM, No family hx of HTN, No family hx ofKidney gigi, No family hx of Liver gigi, No family hx of Lung gigi, No family hx of Stroke, Family hx of heart gigi Social History Smoker: Non-Smoker Alcohol: Denies ETOH Use Drugs: Denies Drug Use Lives In: Home Constitutional: denies: chills, diaphoresis, fatigue, fever, malaise, sweats, weakness, others EENTM: reports: blurred vision; denies: double vision, ear bleeding, ear discharge, ear drainage, ear pain, ear ringing, eye pain, eye redness, hearing loss, mouth pain, mouth swelling, nasal discharge, nose bleeding, nose congestion, nose pain, photophobia, tearing, throat pain, throat swelling, voice changes, others Respiratory: denies: cough, hemoptysis, orthopnea, SOB at rest, shortness of breath, SOB with excertion, stridor, wheezing, others Cardiovascular: denies: chest pain, dizzy spells, diaphoresis, Dyspnea on exertion, edema, irregular heart beat, left arm pain, lightheadedness, palpitations, PND, syncope, others Gastrointestinal: denies: abdomen distended, abdominal pain, blood streaked bowels, constipated, diarrhea, dysphagia, difficulty swallowing, hematemesis, melena, nausea, poor appetite, poor fluid intake, rectal bleeding, rectal pain, vomiting, others Genitourinary: denies: abnormal vagina bleeding, burning, dyspareunia, dysuria, flank pain, frequency, hematuria, incontinence, pain, , vagina discharge, urgency, others Neurological: reports: weakness; denies: dizziness, fainting, headache, left sided numbness, left sided weakness, numbness, paresthesia, pre-existing deficit, right sided numbness, right sided weakness, seizure, speech problems, tingling, tremors, others Musculoskeletal: denies: back pain, gout, joint pain, joint swelling, muscle pain, muscle stiffness, neck pain, others Integumetry: denies: bruises, change in color, change in hair/nails, dryness, laceration, lesions, lumps, rash, wounds, others Allergic/Immunocompromised: denies: Difficulty Healing, Frequent Infections, Hives, Itching, others Hematologic/Lymphatic: denies: anemia, blood clots, easy bleeding, easy bruising, swollen glands, others Endocrine: denies: excessive hunger, excessive sweating, excessive thirst, excessive urination, flushing, intolerance to cold, intolerance to heat, unexplained weight gain, unexplained weight loss, others Psychiatric: denies: anxiety, bipolar disorder, depression, hopeless, panic disorder, schizophrenia, sleepless, suicidal, others All Other Systems: Reviewed and Negative Physical Exam General Appearance: No Apparent Distress, Normal HEENT: Normal ENT Inspection, Pharynx Normal, TMs Normal Neck: Full Range of Motion, Non-Tender, Normal, Normal Inspection Respiratory: Chest Non-Tender, Lungs Clear, No Accessory Muscle Use, No Respiratory Distress, Normal Breath Sounds Cardiovascular: No Edema, No JVD, No Murmur, No Gallop, Normal Peripheral Pulses, Regular Rate/Rhythm Breast Exam: Deferred Gastrointestinal: No Organomegaly, Non Tender, No Pulsatile Mass, Normal Bowel Sounds, Soft Genitalia: Deferred Pelvic: Deferred Rectal: Deferred Extremities: No calf tenderness, Normal capillary refill, Normal inspection, Normal range of motion, Non-tender, No pedal edema Musculoskeletal : Apperance: Normal Neurologic: Alert, conversion man II-XII nml as Tested, No Motor Deficits, Normal Affect, Normal Mood, No Sensory Deficits Cerebellar Function: Normal Reflexes: Normal Skin: Dry, Normal Color, Warm Lymphatic: No Adenopathy Was a procedure done? Was a procedure done?: No Differential Diagnosis (SZ) Seizure: CVA/TIA, Hypocalcemia, Hypoglycemia, Mass Lesion, Syncope CVA: CVA, TIA General Weakness: CVA, Dysrhythmia, Electrolyte imbalance, Hypoglycemia, Hypotension, Myocardial infarction, TIA Headache: CVA X-Ray, Labs, Meds, VS Vital Signs Date Time Temp Pulse Resp B/P (MAP) Pulse Ox O2 Delivery O2 Flow Rate FiO2 01/09/25 14:29 98.3 72 16 106/58 (74) 100 98.3 01/09/25 08:56 91 01/09/25 08:51 97.3 65 18 161/77 99 97.3 Lab Test 01/09/25 13:23 01/09/25 11:20 01/09/25 10:20 01/09/25 09:02 Range/Units Troponin I High Sensitivity 6 5 5 </=34 ng/L White Blood Count 8.4 4.4-10.8 10^3/uL Red Blood Count 4.41 4.0-5.20 10^6/uL Hemoglobin 12.0 L 12.2-16.2 g/dL Hematocrit 36.5 36.0-46.0 % Mean Corpuscular Volume 82.8 80.0-100.0 fL Mean Corpuscular Hemoglobin 27.3 L 28.0-32.0 pg Mean Corpuscular Hemoglobin Concent 33.0 32.0-36.0 g/dL Red Cell Distribution Width 15.0 H 11.8-14.3 % Platelet Count 241 140-450 10^3/uL Mean Platelet Volume 9.3 6.9-10.8 fL Neutrophils (%) (Auto) 73.4 37.0-80.0 % Lymphocytes (%) (Auto) 16.2 10.0-50.0 % Monocytes (%) (Auto) 6.9 0.0-12.0 % Eosinophils (%) (Auto) 3.0 0.0-7.0 % Basophils (%) (Auto) 0.5 0.0-2.0 % Neutrophils # (Auto) 6.2 1.6-8.6 10 ^3/uL Lymphocytes # (Auto) 1.4 0.4-5.4 10 ^3/uL Monocytes # (Auto) 0.6 0-1.3 10 ^3/uL Eosinophils # (Auto) 0.3 0-0.8 10 ^3/uL Basophils # (Auto) 0 0-0.2 10 ^3/uL Nucleated Red Blood Cells 0.0 % Sodium Level 142 136-145 mmol/L Potassium Level 4.2 3.5-5.1 mmol/L Chloride Level 103 98-107 mmol/L Carbon Dioxide Level 29 20-31 mmol/L Anion Gap 10 5-15 Blood Urea Nitrogen 17 9-23 mg/dL Creatinine 0.85 0.550-1.02 mg/dL Glomerular Filtration Rate Calc 66 >90 mL/min BUN/Creatinine Ratio 20.0 10.0-20.0 Serum Glucose 192 H 74-106 mg/dL Calcium Level 9.6 8.7-10.4 mg/dL POC Glucose 193 H 70-106 mg/dl [place] [address] Ph: [phone] DIAGNOSTIC IMAGING Diagnostic Imaging Report : [id number] Signed PATIENT: LEEANN WYATT ACCT: [id number] UNIT: [id number] : 1935 LOC: ER ROOM / BED: / AGE / SEX: 89 / F ADM STATUS: REG ER SERVICE 0921 ORDERING PHYSICIAN: ROBERT COATS MD PROCEDURE(s): CXR1 - CHEST XRAY 1 VIEW REASON: tia ORDER NUMBER(s): [id number], ACCESSION NUMBER(s): [id number] CHEST RADIOGRAPH Indication: tia Technique: Single frontal view of the chest was obtained Comparison: XY CHEST PORTABLE on DOS: 10/25/24. FINDINGS: Lines and Tubes: Dual-chamber pacemaker is present with right atrial and ventricular leads. Lungs: No focal consolidation. Pleura: No effusion. No pneumothorax. Cardiomediastinal contours: Unremarkable Bones: No acute osseous abnormality. IMPRESSION: 1. No acute cardiopulmonary disease. ATED BY: YOMAIRA GOLDEN MD DICTATED DATE/TIME: 01/09/256 SIGNED BY: YOMAIRA GOLDEN MD SIGNED DATE/TIME: 01/09/25 1026 CC: [address] [address] Ph: [phone] DIAGNOSTIC IMAGING Diagnostic Imaging Report : [id number] Signed PATIENT: LEEANN WYATT ACCT: [id number] UNIT: [id number] : 1935 LOC: ER ROOM / BED: / AGE / SEX: 89 / F ADM STATUS: REG ER SERVICE 0 ORDERING PHYSICIAN: RBOERT COATS MD PROCEDURE(s): HWOCT - HEAD WITHOUT CONTRAST REASON: tia ORDER NUMBER(s): [id number], ACCESSION NUMBER(s): [id number] CT HEAD WITHOUT CONTRAST INDICATION: tia COMPARISON: CT ANGIO HEAD/NECK on DOS: 10/25/24, CT HEAD WITHOUT CONTRAST on DOS: 10/25/24 TECHNIQUE: CT of the head without intravenous contrast. RADIATION DOSE: CTDIvol: 51 mGy, DLP: 905 mGy*cm FINDINGS: There is no evidence of acute intracranial hemorrhage, extra-axial collection, mass effect, midline shift, herniation or hydrocephalus. The ventricles, sulci and cisterns are age appropriate. The colon-white differentiation is intact. The visualized paranasal sinuses and mastoid air cells are clear. The surrounding soft tissues and osseous structures are unremarkable. IMPRESSION: 1. No evidence of acute intracranial hemorrhage, mass effect or hydrocephalus. ATED BY: BRENNEN WADDELL MD DICTATED DATE/TIME: 01/09/25 1031 SIGNED BY: BRENNEN WADDELL MD SIGNED DATE/TIME: 01/09/25 1031 CC: Time of 1ST Reevaluation: 09:50 Reevaluation 1ST: Unchanged Time of 2ND Reevaluation: 14:11 Reevaluation 2ND: Unchanged Patient Education/Counseling: Diagnosis, Treatment, Prognosis, Need For Follow Up Family Education/Counseling: Diagnosis, Treatment, Prognosis, Need For Follow Up Comments This is a patient who has a history of TIAs presents to the emergency room with a another episode this morning which suggested TIA. She has been stable without any further symptoms while she has been here. Her workup included a head CT has been unremarkable. She has had no arrhythmias. However with her significant history, I will consult her doctor to have her admitted for further workup for the TIA. Patient has had no symptoms while she has been here. Her workup including the CAT scan has been unremarkable. Dr. Hernandez from [facility] called back and they would like to repeat treated the patient back to [facility] or [place]. Patient is stable. And they preferred to be repaired treated as well. Case #[id number] Additional Information The following previous visits were reviewed: 10/25/24 Dx: Gait Instability, 01/06/24 Dx: CP r/o ACS The following tests were ordered, and results were reviewed by me: CBC, BMP, TROPONIN X3, CXY, HEAD CT Additional Information was gathered from interviewing the following independent historians: Patient's Daughter I reviewed and agreed with the following test results read by other providers: CXY, HEAD CT I discussed treatment and results with medical personnel and: patient Comprehensive systems review obtained and negative except for what is stated in the HPI. Departure 1 Departure Time of Disposition: 14:10 Impression: Primary Impression: TIA (transient ischemic attack) Disposition: ADMITTED INPATIENT Admit to: Tele Condition: Serious Discharged With: Self, Relative Critical Care Note Critical Care Time?: Yes (55 min-critical care time only) Critical care comment: Total critical care time: Approximately 55 minutes Due to a high probability of clinically significant, life threatening deterioration, the patient required my highest level of preparedness to intervene emergently and I personally spent this critical care time directly and personally managing the patient. This critical care time included obtaining a history; examining the patient; pulse oximetry; ordering and review of studies; arranging urgent treatment with development of a management plan; evaluation of patient's response to treatment; frequent reassessment; and, discussions with other providers. This critical care time was performed to assess and manage the high probability of imminent, life-threatening deterioration that could result in multi-organ failure. It was exclusive of separately billable procedures and treating other patients. Stability Stability form required: No Heart Score Heart Score: Heart Score Response (Comments) Value History N/A 0 EKG N/A 0 Age N/A 0 Risk Factors N/A 0 Troponin N/A 0 Total 0 I personally scribed for ROBERT COATS MD ([facility]) on 01/09/25 at 09:07. Electronically submitted by Zena Dias ([email or web address]). I personally scribed for ROBERT COATS MD ([facility]) on 01/09/25 at 09:33. Electronically submitted by Zena Dias ([email or web address]). I personally scribed for ROBERT COATS MD ([facility]) on 01/09/25 at 10:40. Electronically submitted by Zena Dias ([email or web address]). I personally scribed for ROBERT COATS MD ([facility]) on 01/09/25 at 10:42. Electronically submitted by Zena Dias ([email or web address]). ROBERT COATS MD Jan 09, 2025 09:07
--- NOTE | 2025-01-09 10:28 | DVH ---
CHEST RADIOGRAPH Indication: tia Technique: Single frontal view of the chest was obtained Comparison: XY CHEST PORTABLE on DOS: 10/25/24. FINDINGS: Lines and Tubes: Dual-chamber pacemaker is present with right atrial and ventricular leads. Lungs: No focal consolidation. Pleura: No effusion. No pneumothorax. Cardiomediastinal contours: Unremarkable Bones: No acute osseous abnormality. IMPRESSION: 1. No acute cardiopulmonary disease.
--- NOTE | 2025-01-09 10:34 | DVH ---
CT HEAD WITHOUT CONTRAST INDICATION: tia COMPARISON: CT ANGIO HEAD/NECK on DOS: 10/25/24, CT HEAD WITHOUT CONTRAST on DOS: 10/25/24 TECHNIQUE: CT of the head without intravenous contrast. RADIATION DOSE: CTDIvol: 51 mGy, DLP: 905 mGy*cm FINDINGS: There is no evidence of acute intracranial hemorrhage, extra-axial collection, mass effect, midline shift, herniation or hydrocephalus. The ventricles, sulci and cisterns are age appropriate. The colon-white differentiation is intact. The visualized paranasal sinuses and mastoid air cells are clear. The surrounding soft tissues and osseous structures are unremarkable. IMPRESSION: 1. No evidence of acute intracranial hemorrhage, mass effect or hydrocephalus.
[2025-01-09 10:51] LABS: Hematocrit 36.5 % (36.0-46.0); Hemoglobin 12.0 g/dL (12.2-16.2); Mean Corpuscular Hemoglobin 27.3 pg (28.0-32.0); Mean Corpuscular Volume 82.8 fL (80.0-100.0); Nucleated Red Blood Cells % 0.0 %
[2025-01-09 11:01] LABS: Chloride 103 mmol/L (98-107); Potassium 4.2 mmol/L (3.5-5.1); Sodium 142 mmol/L (136-145)
[2025-01-09 11:02] LABS: Anion Gap 10 (5-15); Carbon Dioxide 29 mmol/L (20-31)
[2025-01-09 11:03] LABS: Calcium 9.6 mg/dL (8.7-10.4)
[2025-01-09 11:07] LABS: BUN/Creatinine Ratio 20.0 (10.0-20.0); Blood Urea Nitrogen 17 mg/dL (9-23)
[2025-01-09 11:08] LABS: Glucose 192 mg/dL (74-106)
[2025-01-09 16:06] VITALS: BP 160/75; TEMP 98.7
[2025-01-09 16:11] VITALS: PULSE 71; RESP 18; O2SAT 98
--- NOTE | 2025-01-10 10:51 | ECG ---
[facility] Test Date: 2025-01-09 Test Time: 08:56:20 Pat Name: LEEANN WYATT Department: ED Room: Gender: F [place] Hold: NINFA : 1935 Requested By: ROBERT COATS Order Number: [id number] Reading MD: Measurements Intervals [place] Rate: 91 P: 0 KS: 0 QRS: -31 QRSD: 90 T: 51 QT: 353 QTc: 435 Interpretive Statements Atrial fibrillation Paired ventricular premature complexes Inferior infarct, old Anterior infarct, old Please click the below link to view image of tracing.
== END 2025-01-09 16:26 | disposition short-term general hospital (02) ==
LOC: ER 08:48
DX: G45.9 Transient cerebral ischemic attack, unspecified (principal); H54.7 Unspecified visual loss; E11.9 Type 2 diabetes mellitus without complications; E78.5 Hyperlipidemia, unspecified; I10 Essential (primary) hypertension; I25.2 Old myocardial infarction; I48.91 Unspecified atrial fibrillation; Z86.73 Personal history of transient ischemic attack (TIA), and cerebral infarction without residual deficits; Z90.710 Acquired absence of both cervix and uterus; Z95.0 Presence of cardiac pacemaker
CPT/HCPCS: 36415; 70450; 71045; 80048; 82947; 82962; 84484; 85025; 93005; 99291